=== PATIENT | female | born 1970 | race Caucasian/White ===

== ENCOUNTER 2016-05-26 11:41 | Emergency (ER) | payer OTHER ==
[~2016-05-26] VITALS: Ht 165.1 cm; Wt 107.5 kg
[~2016-05-26 11:41] MED LIST: CIPR500T4 PO; EXCETAB PO; KETO10 PO; METR500I3 PO; PERC10TA27 PO; POLY119S PO; RANI150T PO; SERT100 PO; TAB-TAB PO; TOPI25TA2 PO; TRAM50TA PO; VERA40TA PO; ZOFR4TAB3 SL; ZOLP10TA3 PO
[2016-05-26 12:04] VITALS: BP 135/91; PULSE 78; RESP 16; TEMP 99.5; O2SAT 98
[2016-05-26] MEDS ORDERED: PROB500T8 PO (12:24)
[2016-05-26] MEDS ORDERED: BUTA1TAB PO (12:24)
[2016-05-26] MEDS ORDERED: SUMA25TA2 PO (12:24)
[2016-05-26] MEDS ORDERED: CYMB60CA PO (12:24)
[2016-05-26] MEDS ORDERED: GABA300C5 PO (12:24)
[2016-05-26] MEDS ORDERED: VITA20003 PO (12:24)
[2016-05-26] MEDS ORDERED: VERA40TA PO (12:24)
[2016-05-26] MEDS ORDERED: LORA-392 PO (12:24)
[2016-05-26] MEDS ORDERED: CYCL1TAB29 PO (12:24)
[2016-05-26] MEDS ORDERED: LISI20TA PO (12:24)
[2016-05-26] MEDS ORDERED: AMBI10TA PO (12:24)
[2016-05-26] MEDS ORDERED: ZOFR8TAB4 SL (12:24)
[2016-05-26] MEDS ORDERED: LEFL1TAB3 PO (12:24)
[2016-05-26] MEDS ORDERED: MORPHINE SULFATE 4 MG/ML INJ IM ONE (12:30)
[2016-05-26] MEDS ORDERED: ONDANSETRON HCL 4 MG/2 ML VIAL IM ONE (12:30)
[2016-05-26] MEDS ORDERED: KETOROLAC TROMETHAMINE 60 MG/2 ML (IM) VIAL IM ONE (12:30)
--- NOTE | 2016-05-26 12:32 | PD ---
HPI Chief Complaint: Headache Time Seen by Provider: 12:15 Travel History International Travel<30 days: No Contact w/Intl Traveler<30days: No Traveled to known affect area: No History of Present Illness HPI This patient complains of headache. She has chronic daily headaches. She sees pain management and has had full neurologic evaluation. Comes in today complaining of headache. Similar to her usual but worse over the last 2 weeks then the usual headache. No thunderclap onset. No fever. No head injury. She takes no blood thinners. No alleviating factors PFSH Past Medical History Arthritis: Yes (rheumatoid) Autoimmune Disease: Yes (RA) Blood Disorders: No Anxiety: Yes Depression: Yes Heart Rhythm Problems: No Cancer: No Cardiac Catheterization: No Cardiovascular Problems: Yes (HTN) High Cholesterol: No Chest Pain: No Congestive Heart Failure: No Diabetes: No Diminished Hearing: No Endocrine: No Fibromyalgia: Yes Gastrointestinal Disorders: Yes (CHRONIC CONSTIPATION, ) GERD: No Gout: Yes Genitourinary: No Headaches: Yes Hepatitis: No Hiatal Hernia: No Hypertension: Yes (CONTROLLED BY MEDS) Immune Disorder: Yes Implanted Vascular Access Dvce: No Insomnia: Yes Medical other: Yes (pt has rheumatoid arthritis, traits of sickle cell ibs) Musculoskeletal: No Neurologic: Yes (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, SHORT TERM MEMORY ISSUES) Psychiatric: Yes Reproductive: No Respiratory: No Immunizations Current: No Migraines: Yes Myocardial Infarction: No Sickle Cell Disease: Yes (SICKLE CELL TRAIT) Thyroid Disease: No Ulcer: No Tetanus Vaccination: > 5 Years Influenza Vaccination: Yes ?: Not : 3 Para: 2 Miscarriage: 1 : 0 Tubal Ligation: Yes Past Surgical History Body Medical Devices: SICKLE CELL TRAIT Section: Yes (x1) Coronary Artery Bypass Graft: No Gynecologic Surgery: Yes ( tubaligation) Other Surgery: Yes Social History Alcohol Use: No Tobacco Use: No Substance Use: No Allergies-Medications (Allergen,Severity, Reaction): Coded Allergies: Codeine (Verified Allergy, Unknown, 05/26/16) THE PATEINT STATES THAT SHE CAN TOLERATE OTHER OPIATES WELL. Reported Meds & Prescriptions Reported Meds & Active Scripts Active Reported Sumatriptan (Sumatriptan Succinate) 25 Mg Tab 25 Mg PO DIRECTED PRN If a satisfactory response has not been obtained at 2 hours, a second dose may be administered Okzfpxbxju-Jkaajsdciueco-Jlzxhrul 50-325-40 Mg Tab 1-2 Tab PO Q6HR PRN Do not exceed 6 tablets/day. Ativan (Lorazepam) 0.5 Mg Tab 0.5 Mg PO Q8H PRN Flexeril (Cyclobenzaprine HCl) 10 Mg Tab 10 Mg PO BID Zofran Odt (Ondansetron Odt) 8 Mg Tab 8 Mg SL Q8HR Verapamil (Verapamil HCl) 40 Mg Tab 40 Mg PO BID Ambien (Zolpidem Tartrate) 10 Mg Tab 10 Mg PO HS PRN Lisinopril-Hctz 20-12.5 Mg Tab 1 Tab PO DAILY Cymbalta DR (Duloxetine HCl) 60 Mg Capdr 60 Mg PO DAILY Gabapentin 300 Mg Cap 300 Mg PO BID Vitamin D (Cholecalciferol) 2,000 Unit Tab 1 Cap PO DAILY Leflunomide 20 Mg Tab 20 Mg PO DAILY Probenecid 500 Mg Tab 500 Mg PO DAILY Review of Systems HENT: Positive: Headaches Cardiovascular: No: Chest Pain or Discomfort Respiratory: No: Cough Gastrointestinal: No: Nausea Physical Exam Narrative NEUROLOGICAL: Awake and alert. Pupils are equal round and reactive. Motor and sensory grossly within normal limits. Five out of 5 muscle strength in all muscle groups. Normal speech. NECK: Symmetrical appearance, midline trachea. No mass or crepitus. Thyroid without enlargement, tenderness, or mass. SKIN: Inspection shows no rash or ulcers. Palpation shows no induration or nodules. Data Data Last Documented VS Vital Signs Date Time Temp Pulse Resp B/P Pulse Ox O2 Delivery O2 Flow Rate FiO2 05/26/16 12:04 99.5 78 16 135/91 98 Orders Ondansetron Inj (Zofran Inj) (05/26/16 12:30) Ketorolac Inj (Toradol Inj) (05/26/16 12:30) Morphine Inj (Morphine Inj) (05/26/16 12:30) MDM Medical Decision Making Medical Screen Exam Complete: Yes Emergency Medical Condition: Yes Medical Record Reviewed: Yes Differential Diagnosis Differential diagnosis includes migraine, tension headache, cluster headache, meningitis. Narrative Course I have reviewed the patient's electronic medical record. In here for headache multiple times. Had a normal MRI of the brain in 2014 Patient is neurologically intact. No red flags to suggest emergent imaging is indicated. I gave her injection of morphine and Toradol and Zofran sHe should ask her physician whether further imaging is warranted and get follow -up there. Diagnosis Primary Impression: Headache Qualified Code: G44.221 - Chronic tension-type headache, intractable Additional Instructions: The patient was advised to follow up with their physician and return if they worsen. Med/Other Pt SpecificInfo: Other Disposition: 01 DISCHARGE HOME Condition: Stable Ozzy Alfonso MD May 26, 2016 12:32
[2016-05-26 13:18] VITALS: BP 138/67; PULSE 83; RESP 17; O2SAT 95
== END 2016-05-26 13:42 | disposition home or self-care (01) ==
LOC: PHED 11:41
DX: R51 Headache (principal); M06.9 Rheumatoid arthritis, unspecified; I10 Essential (primary) hypertension; F41.8 Other specified anxiety disorders; D57.3 Sickle-cell trait
CPT/HCPCS: 96372; 99283; J1885; J2270; J2405

== ENCOUNTER 2016-06-04 08:41 | Emergency (ER) | payer OTHER ==
[~2016-06-04] VITALS: Ht 165.1 cm; Wt 104.0 kg
[~2016-06-04 08:41] MED LIST changes: +AMBI10TA PO; +BUTA1TAB PO; -CIPR500T4 PO; +CYCL1TAB29 PO; +CYMB60CA PO; -EXCETAB PO; +GABA300C5 PO; -KETO10 PO; +LEFL1TAB3 PO; +LISI20TA PO; +LORA-392 PO; -METR500I3 PO; -PERC10TA27 PO; -POLY119S PO; +PROB500T8 PO; -RANI150T PO; -SERT100 PO; +SUMA25TA2 PO; -TAB-TAB PO; -TOPI25TA2 PO; -TRAM50TA PO; +VITA20003 PO; -ZOFR4TAB3 SL; +ZOFR8TAB4 SL; -ZOLP10TA3 PO
[2016-06-04 08:54] VITALS: BP 123/89; PULSE 92; RESP 17; TEMP 98.6; O2SAT 95
[2016-06-04 09:18] LABS: BLOOD, URINE NEG (NEG); GLUCOSE,URINE NEG (NEG); KETONE, URINE NEG (NEG); NITRITE,URINE NEG (NEG); PH, URINE 5.5 (5.0-8.5)
[2016-06-04 09:22] LABS: COMMENT (UR) CULT NOT INDICATED; CULTURE IF INDICATED CULT NOT INDICATED; METHOD OF COLLECTION CLEAN CATCH; SQUAMOUS EPITHELIAL CELL URINE 0-5 /hpf (0-5); URINE COLOR YELLOW (YELLW/STRAW)
[2016-06-04] MEDS ORDERED: SODIUM CHLOR 0.9% 1000 ML INJ 1,000 ML IV SCH (11:12)
[2016-06-04] MEDS ORDERED: ONDANSETRON HCL 4 MG/2 ML VIAL IVP ONE (11:15)
[2016-06-04] MEDS ORDERED: TYLETAB34 PO (11:15)
[2016-06-04] MEDS ORDERED: SODIUM CHLORIDE 0.9% FLUSH 5 ML FLUSH IVF PRN (11:15)
[2016-06-04] MEDS ORDERED: COLA100C3 PO (11:16)
[2016-06-04] MEDS ORDERED: MIRA33504 PO (11:16)
--- NOTE | 2016-06-04 11:17 | PD ---
HPI Chief Complaint: GI Complaint Time Seen by Provider: 11:11 Travel History International Travel<30 days: No Contact w/Intl Traveler<30days: No Traveled to known affect area: No History of Present Illness HPI 45-year-old female here for evaluation of abdominal pain, constipation, nausea, and vomiting. The patient reports that she has not had a bowel movement in the last 7-8 days. She states that she has been straining on the toilet and is having some rectal pain and believe she may have hemorrhoids because of it. History of section. No other abdominal surgeries. Last episode of vomiting was yesterday evening. Abdominal pain is lower, cramping, intermittent. No fevers or chills. History of diverticulitis. No urinary symptoms. No vaginal bleeding or discharge. PFSH Past Medical History Arthritis: Yes (rheumatoid) Autoimmune Disease: Yes (RA) Blood Disorders: No Anxiety: Yes Depression: Yes Heart Rhythm Problems: No Cancer: No Cardiac Catheterization: No Cardiovascular Problems: Yes (HTN) High Cholesterol: No Chest Pain: No Congestive Heart Failure: No Diabetes: No Diminished Hearing: No Endocrine: No Fibromyalgia: Yes Gastrointestinal Disorders: Yes (CHRONIC CONSTIPATION, ) GERD: No Gout: Yes Genitourinary: No Headaches: Yes Hepatitis: No Hiatal Hernia: No Heparin Induced Thrombocytopen: No Hypertension: Yes (CONTROLLED BY MEDS) Immune Disorder: Yes Implanted Vascular Access Dvce: No Insomnia: Yes Medical other: Yes (pt has rheumatoid arthritis, traits of sickle cell ibs) Musculoskeletal: No Neurologic: Yes (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, SHORT TERM MEMORY ISSUES) Psychiatric: Yes Reproductive: No Respiratory: No Immunizations Current: No Migraines: Yes Myocardial Infarction: No Sickle Cell Disease: Yes (SICKLE CELL TRAIT) Thyroid Disease: No Ulcer: No ?: Not LMP: 05/10/2016 : 3 Para: 2 Miscarriage: 1 : 0 Tubal Ligation: Yes Past Surgical History Body Medical Devices: SICKLE CELL TRAIT Section: Yes (x1) Coronary Artery Bypass Graft: No Gynecologic Surgery: Yes ( tubaligation) Other Surgery: Yes Family History Family Myocardial Infarction: No Social History Alcohol Use: No Tobacco Use: No Substance Use: No Allergies-Medications (Allergen,Severity, Reaction): Coded Allergies: Codeine (Verified Allergy, Unknown, PT DENIES, 06/04/16) THE PATEINT STATES THAT SHE CAN TOLERATE OTHER OPIATES WELL. Reported Meds & Prescriptions Reported Meds & Active Scripts Active Reported Miralax Powder (Polyethylene Glycol 3350 Powder) 17 Gm Powd 17 Gm PO DAILY Mix and dissolve one measuring cap-ful (17 grams) in water or juice. Colace (Docusate Sodium) 100 Mg Cap 100 Mg PO BID Tylenol-Codeine #3 (Acetaminophen-Codeine) 300-30 mg Tab 1-2 Tab PO Q6H PRN Akperzmhax-Ijanekgztqcxk-Pwdtsplj 50-325-40 Mg Tab 1-2 Tab PO Q6HR PRN Do not exceed 6 tablets/day. Ativan (Lorazepam) 0.5 Mg Tab 0.5 Mg PO Q8H PRN Flexeril (Cyclobenzaprine HCl) 10 Mg Tab 10 Mg PO BID Zofran Odt (Ondansetron Odt) 8 Mg Tab 8 Mg SL Q8HR Ambien (Zolpidem Tartrate) 10 Mg Tab 10 Mg PO HS PRN Lisinopril-Hctz 20-12.5 Mg Tab 1 Tab PO DAILY Gabapentin 300 Mg Cap 300 Mg PO BID Vitamin D (Cholecalciferol) 2,000 Unit Tab 1 Cap PO WEEKLY Leflunomide 20 Mg Tab 20 Mg PO DAILY Probenecid 500 Mg Tab 500 Mg PO DAILY Review of Systems Except as stated in HPI: all other systems reviewed are Neg Physical Exam Narrative GENERAL: Well-developed, well-nourished, overweight, comfortable, no acute distress. SKIN: Warm and dry. HEAD: Atraumatic. Normocephalic. EYES: Pupils equal and round. No scleral icterus. No injection or drainage. ENT: Mucous membranes pink and moist. NECK: Trachea midline. No JVD. CARDIOVASCULAR: Regular rate and rhythm. No murmur appreciated. RESPIRATORY: No accessory muscle use. Clear to auscultation. Breath sounds equal bilaterally. GASTROINTESTINAL: Abdomen soft, nondistended. Mild diffuse abdominal tenderness without peritoneal signs. Normal bowel sounds. RECTUM: Exam performed in the presence of a female nurse. No masses, no fissures, no hemorrhoids. No stool in rectal vault. MUSCULOSKELETAL: No obvious deformities. No clubbing. No cyanosis. No edema. NEUROLOGICAL: Awake and alert. No obvious cranial nerve deficits. Motor grossly within normal limits. Normal speech. PSYCHIATRIC: Appropriate mood and affect; insight and judgment normal. Data Data Last Documented VS Vital Signs Date Time Temp Pulse Resp B/P Pulse Ox O2 Delivery O2 Flow Rate FiO2 06/04/16 12:05 16 97 Room Air 06/04/16 12:04 88 133/86 06/04/16 08:54 98.6 Orders Urinalysis - C+S If Indicated (06/04/16 09:07) Ed Urine Pregnancytest Poc (06/04/16 09:07) Complete Blood Count With Diff (06/04/16 11:12) Comprehensive Metabolic Panel (06/04/16 11:12) Lipase (06/04/16 11:12) Prothrombin Time / Inr (Pt) (06/04/16 11:12) Act Partial Throm Time (Ptt) (06/04/16 11:12) Ct Abd/Pel W Iv Contrast(Rout) (06/04/16 11:12) Iv Access Insert/Monitor (06/04/16 11:12) Ecg Monitoring (06/04/16 11:12) Oximetry (06/04/16 11:12) Ondansetron Inj (Zofran Inj) (06/04/16 11:15) Sodium Chlor 0.9% 1000 Ml Inj (Ns 1000 M (06/04/16 11:12) Sodium Chloride 0.9% Flush (Ns Flush) (06/04/16 11:15) Iohexol 350 Inj (Omnipaque 350 Inj) (06/04/16 12:35) Dicyclomine Inj (Bentyl Inj) (06/04/16 13:30) Lactulose Liq (Lactulose Liq) (06/04/16 13:30) Labs Laboratory Tests Test 06/04/16 06/04/16 09:00 11:40 Urine Collection Type CLEAN CATCH Urine Color YELLOW Urine Turbidity CLEAR Urine pH 5.5 Urine Specific [place] 1.018 Urine Protein NEG mg/dL Urine Glucose (UA) NEG mg/dL Urine Ketones NEG mg/dL Urine Occult Blood NEG Urine Nitrite NEG Urine Bilirubin NEG Urine Leukocyte Esterase NEG Urine WBC 3-5 /hpf Urine Squamous Epithelial 0-5 /hpf Cells Microscopic Urinalysis Comment CULT NOT INDICATED Urine Collection Time 09:00 White Blood Count 9.2 TH/MM3 Red Blood Count 4.59 MIL/MM3 Hemoglobin 12.9 GM/DL Hematocrit 38.8 % Mean Corpuscular Volume 84.6 FL Mean Corpuscular Hemoglobin 28.1 PG Mean Corpuscular Hemoglobin 33.2 % Concent Red Cell Distribution Width 12.7 % Platelet Count 306 TH/MM3 Mean Platelet Volume 8.3 FL Neutrophils (%) (Auto) 73.2 % Lymphocytes (%) (Auto) 18.2 % Monocytes (%) (Auto) 6.8 % Eosinophils (%) (Auto) 1.1 % Basophils (%) (Auto) 0.7 % Neutrophils # (Auto) 6.7 TH/MM3 Lymphocytes # (Auto) 1.7 TH/MM3 Monocytes # (Auto) 0.6 TH/MM3 Eosinophils # (Auto) 0.1 TH/MM3 Basophils # (Auto) 0.1 TH/MM3 CBC Comment DIFF FINAL Differential Comment Prothrombin Time 10.9 SEC Prothromb Time International 1.0 RATIO Ratio Activated Partial 26.1 SEC Thromboplast Time Sodium Level 139 MEQ/L Potassium Level 3.5 MEQ/L Chloride Level 104 MEQ/L Carbon Dioxide Level 25.6 MEQ/L Anion Gap 9 MEQ/L Blood Urea Nitrogen 12 MG/DL Creatinine 0.86 MG/DL Estimat Glomerular Filtration 72 ML/MIN Rate Random Glucose 126 MG/DL Calcium Level 8.9 MG/DL Total Bilirubin 0.4 MG/DL Aspartate Amino Transf 14 U/L (AST/SGOT) Alanine Aminotransferase 18 U/L (ALT/SGPT) Alkaline Phosphatase 88 U/L Total Protein 8.0 GM/DL Albumin 3.9 GM/DL Lipase 57 U/L MDM Medical Decision Making Medical Screen Exam Complete: Yes Emergency Medical Condition: Yes Medical Record Reviewed: Yes Differential Diagnosis Constipation, bowel obstruction, diverticulitis, appendicitis, colitis, UTI Narrative Course Vital Signs are within normal limits. CBC is unremarkable. CMP is unremarkable. Lipase is 57. UA is not suggestive of UTI. Urine test is negative. CT abdomen pelvis: CONCLUSION: 1. No acute finding is identified within the abdomen or pelvis. There is a prominent amount of stool throughout the colon consistent with history of constipation. 2. Lobulated complex cystic lesion associated with the left ovary remains present but has decreased in size since the prior examination. It currently measures 4.8 x 3.9 cm compared to 6.3 x 4.1 cm previously. The patient was made aware of all findings. She is resting comfortably. Her abdominal exam shows no peritoneal signs. She is not vomiting. There are no clinical signs of obstruction. She is aware of the left ovarian cyst and states that it is being followed by her passenger service manager Dr. Hanson. She admits to taking a moderate amount of Tylenol 3 for her headaches. I believe that this is controlled reading to her constipation. I will give her a prescription for GoLYTELY to take at home. I will also give her prescription for lactulose should the GoLYTELY not work. She is stable for discharge home with outpatient follow-up with her primary care physician this week. She was informed on when to return to the emergency department. She verbalizes understanding and agreement with plan. 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 Follow-up with your primary care physician this week. Follow-up with your passenger service manager regarding your left ovarian cyst. Return to the emergency department for worsening symptoms or any other concerns as discussed. Scripts Lactulose Liq 10 Gm/15 Ml Soln30 Ml PO Q6H PRN (CONSTIPATION) 5 Days Ref 0 Prov:Cedric Mendez MD 06/04/16 Peg-Electrolytes (Golytely 236 gm)4,000 Ml Soln4,000 Ml PO ONCE #1 CONTAINER Ref 0 Prov:Cedric Mendez MD 06/04/16 Disposition: 01 DISCHARGE HOME Condition: Stable Cedric Mendez MD Jun 04, 2016 11:17
[2016-06-04 11:54] LABS: AUTOMATED NEUTROPHIL # 6.7 TH/MM3 (1.8-7.7); BASOPHIL # 0.1 TH/MM3 (0-0.2); BASOPHIL % 0.7 % (0.0-2.0); EOSINOPHIL # 0.1 TH/MM3 (0-0.4); EOSINOPHIL % 1.1 % (0.0-4.0); HEMATOCRIT 38.8 % (35.0-46.0); HEMO FLAGS DIFF FINAL; LYMPH % 18.2 % (9.0-44.0); LYMPHOCYTE # 1.7 TH/MM3 (1.0-4.8); MEAN CELL VOLUME 84.6 FL (80.0-100.0); MEAN CORPUSCULAR HEMOGLOBIN 28.1 PG (27.0-34.0); MEAN CORPUSCULAR HGB CONC 33.2 % (32.0-36.0); MONO % 6.8 % (0.0-8.0); NEUT % 73.2 % (16.0-70.0); PLATELET COUNT 306 TH/MM3 (150-450); RED BLOOD COUNT 4.59 MIL/MM3 (4.00-5.30); RED CELL DISTRIBUTION WIDTH 12.7 % (11.6-17.2); WHITE BLOOD COUNT 9.2 TH/MM3 (4.0-11.0)
[2016-06-04 12:00] LABS: CHLORIDE 104 MEQ/L (98-107); POTASSIUM 3.5 MEQ/L (3.5-5.1); SODIUM (NA) 139 MEQ/L (136-145)
[2016-06-04 12:04] VITALS: BP 133/86; PULSE 88; RESP 16; O2SAT 97
[2016-06-04 12:04] LABS: ANION GAP 9 MEQ/L (5-15); BICARBONATE 25.6 MEQ/L (21.0-32.0)
[2016-06-04 12:05] VITALS: RESP 16; O2SAT 97
[2016-06-04 12:05] LABS: APTT (PATIENT) 26.1 SEC (24.3-30.1); BLOOD UREA NITROGEN 12 MG/DL (7-18); PROTHROMBIN TIME - PATIENT 10.9 SEC (9.8-11.6)
[2016-06-04 12:07] LABS: ALT (GPT) 18 U/L (10-53); GLOMERULAR FILTRATION RATE 72 ML/MIN (>89)
[2016-06-04 12:08] LABS: AST (GOT) 14 U/L (15-37); TOTAL BILIRUBIN ADULT 0.4 MG/DL (0.2-1.0)
[2016-06-04 12:12] LABS: ALKALINE PHOSPHATASE 88 U/L (45-117)
[2016-06-04] MEDS ORDERED: IOHEXOL 350 MG/ML 10 ML VIAL (for RAD DIAG) IV ONE (12:35)
--- NOTE | 2016-06-04 13:15 | RADHPO ---
EXAM DATE/TIME: 06/04/2016 12:26 [facility] COMPARISON: US PELVIS,COMP,W DOPLR, TRANS VAG, July 02, 2015, 22:09. CT ABDOMEN & PELVIS W CONTRAST, 2015, 19:14. INDICATIONS : Lower abdominal pain. Nausea and vomiting. Constipation x 8 days. IV CONTRAST: 85 cc Omnipaque 350 (iohexol) IV ORAL CONTRAST: No oral contrast ingested. RADIATION DOSE: 22.04 CTDIvol (mGy) MEDICAL HISTORY : Hypertension. SURGICAL HISTORY : Tubal ligation. section. ENCOUNTER: Initial ACUITY: 1 week PAIN SCALE: 8/10 LOCATION: Bilateral lower quadrant TECHNIQUE: Volumetric scanning of the abdomen and pelvis was performed. Using automated exposure control and ad justment of the mA and/or kV according to patient size, radiation dose was kept as low as reasonably achievable to obtain optimal diagnostic quality images. FINDINGS: LOWER LUNGS: The visualized lower lungs are clear. LIVER: Homogeneous density without lesion. There is no dilation of the biliary tree. No calcified gallston es. SPLEEN: Normal size without lesion. PANCREAS: Within normal limits. KIDNEYS: Normal in size and shape. There is no mass, stone or hydronephrosis. ADRENAL GLANDS: Within normal limits. VASCULAR: There is no aortic aneurysm. BOWEL/MESENTERY: The stomach, small bowel, and colon demonstrate no acute abnormality. There is no free intraperitone al air or fluid. There is a prominent amount of stool throughout the colon. ABDOMINAL WALL: Within normal limits. RETROPERITONEUM: There is no lymphadenopathy. BLADDER: No wall thickening or mass. REPRODUCTIVE: Uterus is retroverted with tubal ligation clips visualized. There is a lobulated cystic lesion associ ated with the left ovary measuring approximately 4.8 x 3.9 cm. This compares to 6.3 x 4.1 cm on the p rior examination. INGUINAL: There is no lymphadenopathy or hernia. MUSCULOSKELETAL: No acute abnormality is visualized. CONCLUSION: 1. No acute finding is identified within the abdomen or pelvis. There is a prominent amount of stool throughout the colon consistent with history of constipation. 2. Lobulated complex cystic lesion associated with the left ovary remains present but has decreased i n size since the prior examination. It currently measures 4.8 x 3.9 cm compared to 6.3 x 4.1 cm previ ously. Aneesh Villalobos MD on June 04, 2016 at 13:08 Board Certified Radiologist. This report was verified electronically.
[2016-06-04] MEDS ORDERED: LACT10SO PO (13:26)
[2016-06-04] MEDS ORDERED: COLY4000S PO (13:26)
[2016-06-04] MEDS ORDERED: DICYCLOMINE HCL 20 MG/2 ML VIAL IM ONE (13:30)
[2016-06-04] MEDS ORDERED: LACTULOSE SYRUP 20 GM/30 ML CUP PO ONE (13:30)
[2016-06-04 13:54] VITALS: BP 135/78; PULSE 78; RESP 16; O2SAT 97
== END 2016-06-04 13:56 | disposition home or self-care (01) ==
LOC: PHED 08:41
DX: K59.00 Constipation, unspecified (principal); N83.202 Unspecified ovarian cyst, left side; F41.8 Other specified anxiety disorders; I10 Essential (primary) hypertension
CPT/HCPCS: 74177; 80053; 81001; 83690; 84703; 85025; 85610; 85730; 96361; 96372; 96374; 99284; J0500; J2405; J7030; Q9967

== ENCOUNTER → 2016-07-09 | Outpatient (CLI) | payer OTHER ==
[~2016-07-09] MED LIST changes: +CARB200T PO; +COLA100C3 PO; +COLY4000S PO; -CYMB60CA PO; +DULO1CAP3 PO; +LACT10SO PO; +MIRA33504 PO; -SUMA25TA2 PO; +TOFA1TAB PO; +TRAZ100T6 PO; +TYLETAB34 PO; +ULTR50TA5 PO; -VERA40TA PO; +VITA100T15 SL
[2016-07-09 09:35] LABS: AUTOMATED NEUTROPHIL # 3.8 TH/MM3 (1.8-7.7); BASOPHIL # 0.1 TH/MM3 (0-0.2); BASOPHIL % 1.2 % (0.0-2.0); EOSINOPHIL # 0.3 TH/MM3 (0-0.4); EOSINOPHIL % 4.5 % (0.0-4.0); HEMATOCRIT 37.3 % (35.0-46.0); HEMO FLAGS DIFF FINAL; LYMPH % 28.2 % (9.0-44.0); LYMPHOCYTE # 1.8 TH/MM3 (1.0-4.8); MEAN CELL VOLUME 84.9 FL (80.0-100.0); MEAN CORPUSCULAR HEMOGLOBIN 28.5 PG (27.0-34.0); MEAN CORPUSCULAR HGB CONC 33.6 % (32.0-36.0); MONO % 7.3 % (0.0-8.0); NEUT % 58.8 % (16.0-70.0); PLATELET COUNT 253 TH/MM3 (150-450); RED BLOOD COUNT 4.39 MIL/MM3 (4.00-5.30); RED CELL DISTRIBUTION WIDTH 13.2 % (11.6-17.2); WHITE BLOOD COUNT 6.5 TH/MM3 (4.0-11.0)
[2016-07-09 10:04] LABS: ALKALINE PHOSPHATASE 90 U/L (45-117); ALT (GPT) 19 U/L (10-53); ANION GAP 10 MEQ/L (5-15); AST (GOT) 18 U/L (15-37); BICARBONATE 26.3 MEQ/L (21.0-32.0); BLOOD UREA NITROGEN 10 MG/DL (7-18); CHLORIDE 102 MEQ/L (98-107); GLOMERULAR FILTRATION RATE 78 ML/MIN (>89); GLUCOSE,FASTING 100 MG/DL (74-99); POTASSIUM 3.7 MEQ/L (3.5-5.1); SODIUM (NA) 138 MEQ/L (136-145); TOTAL BILIRUBIN ADULT 0.3 MG/DL (0.2-1.0)
[2016-07-09 10:10] LABS: FREE T4 0.75 NG/DL (0.76-1.46); HDL CHOLESTEROL 41.6 MG/DL (40.0-60.0)
[2016-07-09 10:35] LABS: WESTERGREN SEDIMENTATION RATE 46 mm/hr (0-20)
[2016-07-09 10:44] LABS: RHEUMATOID FACTOR TRIGGER 99.3 IU/ML (0.0-14.9)
== END ==
LOC: CLAB 08:57
PROVIDERS: ATTEND Allergy & Immunology
DX: M05.741 Rheumatoid arthritis with rheumatoid factor of right hand without organ or systems involvement (principal); G43.909 Migraine, unspecified, not intractable, without status migrainosus; I10 Essential (primary) hypertension; G47.00 Insomnia, unspecified; Z79.899 Other long term (current) drug therapy
CPT/HCPCS: 36415; 80053; 80061; 84439; 84443; 85025; 85652; 86140; 86430

== ENCOUNTER 2016-11-01 07:54 | Emergency (ER) | payer OTHER ==
[~2016-11-01] VITALS: Ht 167.6 cm; Wt 100.0 kg
[~2016-11-01 07:54] MED LIST changes: -CARB200T PO; -DULO1CAP3 PO; -TOFA1TAB PO; -TRAZ100T6 PO; -ULTR50TA5 PO; -VITA100T15 SL
[2016-11-01 07:56] VITALS: BP 139/86; PULSE 87; RESP 16; TEMP 98.5; O2SAT 98
[2016-11-01] MEDS ORDERED: SODIUM CHLOR 0.9% 1000 ML INJ 1,000 ML IV SCH (08:20)
[2016-11-01 08:24] VITALS: RESP 18; O2SAT 98
[2016-11-01] MEDS ORDERED: SODIUM CHLORIDE 0.9% FLUSH 10 ML FLUSH IV FLUSH PRN (08:30)
[2016-11-01] MEDS ORDERED: HYDROmorphone HCL PF 1 MG/ML VIAL IVS ONE (08:30)
[2016-11-01] MEDS ORDERED: ONDANSETRON HCL 4 MG/2 ML VIAL IVP ONE (08:30)
--- NOTE | 2016-11-01 08:32 | PD ---
HPI Chief Complaint: GI Complaint Time Seen by Provider: 08:17 Travel History International Travel<30 days: No Contact w/Intl Traveler<30days: No Traveled to known affect area: No History of Present Illness HPI has a h/o ibs and had been constipated for days, despite using lactulose....drank some epsom salt and has since had abd cramps and bm's are PFSH Past Medical History Arthritis: Yes (rheumatoid) Autoimmune Disease: Yes (RA) Blood Disorders: No Anxiety: Yes Depression: Yes Heart Rhythm Problems: No Cancer: No Cardiac Catheterization: No Cardiovascular Problems: Yes (HTN) High Cholesterol: No Chest Pain: No Congestive Heart Failure: No Diabetes: No Diminished Hearing: No Endocrine: No Fibromyalgia: Yes Gastrointestinal Disorders: Yes (CHRONIC CONSTIPATION, ) GERD: No Gout: Yes Genitourinary: No Headaches: Yes Hepatitis: No Hiatal Hernia: No Heparin Induced Thrombocytopen: No Hypertension: Yes (CONTROLLED BY MEDS) Immune Disorder: Yes Implanted Vascular Access Dvce: No Insomnia: Yes Medical other: Yes (pt has rheumatoid arthritis, traits of sickle cell ibs) Musculoskeletal: No Neurologic: Yes (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, SHORT TERM MEMORY ISSUES) Psychiatric: Yes Reproductive: No Respiratory: No Immunizations Current: No Migraines: Yes Myocardial Infarction: No Sickle Cell Disease: Yes (SICKLE CELL TRAIT) Thyroid Disease: No Ulcer: No ?: Not : 3 Para: 2 Miscarriage: 1 : 0 Tubal Ligation: Yes Past Surgical History Body Medical Devices: SICKLE CELL TRAIT Section: Yes (x1) Coronary Artery Bypass Graft: No Gynecologic Surgery: Yes ( tubaligation) Other Surgery: Yes Family History Family Myocardial Infarction: No Social History Alcohol Use: No Tobacco Use: No Substance Use: No Allergies-Medications (Allergen,Severity, Reaction): Coded Allergies: No Known Allergies (Unverified , 11/01/16) Reported Meds & Prescriptions Reported Meds & Active Scripts Active Lactulose Liq (Lactulose) 10 Gm/15 Ml Soln 30 Ml PO Q6H PRN 5 Days Reported Carbamazepine 200 Mg Tab 200 Mg PO BID Vitamin B12 (Cyanocobalamin) 100 Mcg Tab 100 Mcg SL DAILY Xeljanz Xr (Tofacitinib ER) 11 Mg Tab 11 Mg PO DAILY Trazodone (Trazodone HCl) 100 Mg Tablet 100 Mg PO HS Duloxetine DR (Duloxetine HCl) 60 Mg Capdr 90 Mg PO DAILY Tylenol-Codeine #3 (Acetaminophen-Codeine) 300-30 mg Tab 1-2 Tab PO Q6H PRN Ulpvchqwtg-Ifykfntrlngyx-Ekecefzo 50-325-40 Mg Tab 1-2 Tab PO Q6HR PRN Do not exceed 6 tablets/day. Ativan (Lorazepam) 0.5 Mg Tab 0.5 Mg PO Q8H PRN Zofran Odt (Ondansetron Odt) 8 Mg Tab 8 Mg SL Q8HR Ambien (Zolpidem Tartrate) 10 Mg Tab 10 Mg PO HS PRN Lisinopril-Hctz 20-12.5 Mg Tab 1 Tab PO DAILY Gabapentin 300 Mg Cap 300 Mg PO TID Vitamin D (Cholecalciferol) 2,000 Unit Tab 1 Cap PO WEEKLY Leflunomide 20 Mg Tab 20 Mg PO DAILY Probenecid 500 Mg Tab 500 Mg PO DAILY Review of Systems Gastrointestinal: Positive: Diarrhea, Abdominal Pain Physical Exam Narrative GENERAL: SKIN: Warm and dry. HEAD: Atraumatic. Normocephalic. EYES: Pupils equal and round. No scleral icterus. No injection or drainage. ENT: No nasal bleeding or discharge. Mucous membranes pink and moist. NECK: Trachea midline. No JVD. CARDIOVASCULAR: Regular rate and rhythm. RESPIRATORY: No accessory muscle use. Clear to auscultation. Breath sounds equal bilaterally. GASTROINTESTINAL: Abdomen soft, mild diffuse tenderness to palpation but not to percussion, nondistended MUSCULOSKELETAL: Extremities without clubbing, cyanosis, or edema. No obvious deformities. NEUROLOGICAL: Awake and alert. No obvious cranial nerve deficits. Motor grossly within normal limits. Five out of 5 muscle strength in the arms and legs. Normal speech. PSYCHIATRIC: Appropriate mood and affect; insight and judgment normal. Data Data Last Documented VS Vital Signs Date Time Temp Pulse Resp B/P Pulse Ox O2 Delivery O2 Flow Rate FiO2 11/01/16 08:24 18 98 Room Air 11/01/16 07:56 98.5 87 139/86 Orders Complete Blood Count With Diff (11/01/16 08:20) Comprehensive Metabolic Panel (11/01/16 08:20) Lipase (11/01/16 08:20) Ct Abd/Pel W/O Iv Contrast (11/01/16 08:20) Iv Access Insert/Monitor (11/01/16 08:20) Ecg Monitoring (11/01/16 08:20) Oximetry (11/01/16 08:20) NPO (11/01/16 08:20) Ondansetron Inj (Zofran Inj) (11/01/16 08:30) Sodium Chlor 0.9% 1000 Ml Inj (Ns 1000 M (11/01/16 08:20) Sodium Chloride 0.9% Flush (Ns Flush) (11/01/16 08:30) Hydromorphone Pf Inj (Dilaudid Pf Inj) (11/01/16 08:30) Ed Urine Pregnancytest Poc (11/01/16 08:20) Prochlorperazine Inj (Compazine Inj) (11/01/16 09:30) Labs Laboratory Tests Test 11/01/16 08:56 White Blood Count 9.4 TH/MM3 Red Blood Count 4.40 MIL/MM3 Hemoglobin 12.4 GM/DL Hematocrit 36.8 % Mean Corpuscular Volume 83.5 FL Mean Corpuscular Hemoglobin 28.1 PG Mean Corpuscular Hemoglobin 33.7 % Concent Red Cell Distribution Width 14.0 % Platelet Count 277 TH/MM3 Mean Platelet Volume 8.7 FL Neutrophils (%) (Auto) 75.3 % Lymphocytes (%) (Auto) 16.5 % Monocytes (%) (Auto) 6.9 % Eosinophils (%) (Auto) 0.9 % Basophils (%) (Auto) 0.4 % Neutrophils # (Auto) 7.1 TH/MM3 Lymphocytes # (Auto) 1.5 TH/MM3 Monocytes # (Auto) 0.7 TH/MM3 Eosinophils # (Auto) 0.1 TH/MM3 Basophils # (Auto) 0.0 TH/MM3 CBC Comment DIFF FINAL Differential Comment Sodium Level 141 MEQ/L Potassium Level 3.5 MEQ/L Chloride Level 107 MEQ/L Carbon Dioxide Level 24.6 MEQ/L Anion Gap 9 MEQ/L Blood Urea Nitrogen 12 MG/DL Creatinine 0.87 MG/DL Estimat Glomerular Filtration 71 ML/MIN Rate Random Glucose 112 MG/DL Calcium Level 9.2 MG/DL Total Bilirubin 0.4 MG/DL Aspartate Amino Transf 18 U/L (AST/SGOT) Alanine Aminotransferase 22 U/L (ALT/SGPT) Alkaline Phosphatase 101 U/L Total Protein 8.3 GM/DL Albumin 4.1 GM/DL Lipase 88 U/L [facility] Medical Decision Making Medical Screen Exam Complete: Yes Emergency Medical Condition: Yes Medical Record Reviewed: Yes Differential Diagnosis medication reaction v colitis v divertic v sbo/perf Narrative Course PATIENT TOLERATED PO CHALLENGE...CT SIG FOR ADNEXAL CYST AND DIVERTICULOSIS BUT WITHOUT DIVERTICULITIS NOR ANY COMPLICATION (SUCH ABSCESS, MICROPERFORATION ETC). PT WILL BE D/C AND RECC TO F/U WITH GI SPECIALIST Diagnosis Primary Impression: MEDICATION REACTION Additional Impressions: DIVERTICULOSIS ADNEXAL CYST Patient Instructions: Clear Liquid Diet (ED), General Instructions, Narcotic given in the ED Scripts Tramadol (Ultram)50 Mg Tab50 Mg PO Q4H PRN (PAIN) #28 TAB Prov:Wilfrid Toledo MD 11/01/16 Disposition: 01 DISCHARGE HOME Condition: Stable Wilfrid Toledo MD Nov 01, 2016 08:32
[2016-11-01] MEDS ORDERED: CARB200T PO (09:16)
[2016-11-01] MEDS ORDERED: DULO1CAP3 PO (09:16)
[2016-11-01] MEDS ORDERED: TRAZ100T6 PO (09:16)
[2016-11-01] MEDS ORDERED: TOFA1TAB PO (09:16)
[2016-11-01] MEDS ORDERED: VITA100T15 SL (09:16)
[2016-11-01 09:18] LABS: AUTOMATED NEUTROPHIL # 7.1 TH/MM3 (1.8-7.7); BASOPHIL % 0.4 % (0.0-2.0); EOSINOPHIL # 0.1 TH/MM3 (0-0.4); EOSINOPHIL % 0.9 % (0.0-4.0); HEMATOCRIT 36.8 % (35.0-46.0); HEMO FLAGS DIFF FINAL; LYMPH % 16.5 % (9.0-44.0); LYMPHOCYTE # 1.5 TH/MM3 (1.0-4.8); MEAN CELL VOLUME 83.5 FL (80.0-100.0); MEAN CORPUSCULAR HEMOGLOBIN 28.1 PG (27.0-34.0); MEAN CORPUSCULAR HGB CONC 33.7 % (32.0-36.0); MONO % 6.9 % (0.0-8.0); NEUT % 75.3 % (16.0-70.0); PLATELET COUNT 277 TH/MM3 (150-450); WHITE BLOOD COUNT 9.4 TH/MM3 (4.0-11.0)
--- NOTE | 2016-11-01 09:24 | RADRPT ---
EXAM DATE/TIME: 11/01/2016 09:01 [facility] COMPARISON: US PELVIS,COMP,W DOPLR, TRANS VAG, July 02, 2015, 22:09. CT ABDOMEN & PELVIS W CONTRAST, June 04, 2016, 12:26. INDICATIONS : Abdomen pain. ORAL CONTRAST: No oral contrast ingested. RADIATION DOSE: 16.23 CTDIvol (mGy) MEDICAL HISTORY : Sickle cell disease. SURGICAL HISTORY : Tubal ligation. ENCOUNTER: Initial ACUITY: 1 day PAIN SCALE: 4/10 LOCATION: Bilateral abdomen. TECHNIQUE: Volumetric scanning of the abdomen and pelvis was performed. Using automated exposure control and ad justment of the mA and/or kV according to patient size, radiation dose was kept as low as reasonably achievable to obtain optimal diagnostic quality images. DICOM format image data is available electro nically for review and comparison. The lack of IV contrast limits the diagnosis for certain organ pat hology. FINDINGS: LOWER LUNGS: The visualized lower lungs are clear. LIVER: Homogeneous density without lesion. There is no dilation of the biliary tree. No calcified gallston es. SPLEEN: Normal size without lesion. PANCREAS: Within normal limits. KIDNEYS: Normal in size and shape. There is no mass, stone, or hydronephrosis. ADRENAL GLANDS: Within normal limits. VASCULAR: There is no aortic aneurysm. BOWEL/MESENTERY: The stomach, small bowel, and colon demonstrate no acute abnormality. There is no free intraperitone al air or fluid. Scattered diverticulosis of the descending and sigmoid colon without inflammatory ch anges. No significant change compared to the prior study. ABDOMINAL WALL: Within normal limits. RETROPERITONEUM: There is no lymphadenopathy. BLADDER: No wall thickening or mass. REPRODUCTIVE: Stable complex cystic mass in the left adnexa measuring approximately 5.3 x 2.1 cm. This is not signi ficantly changed compared to the prior CT abdomen and pelvic ultrasound from 2016 INGUINAL: There is no lymphadenopathy or hernia. MUSCULOSKELETAL: Within normal limits for patient age. CONCLUSION: 1. Diverticulosis of the descending and sigmoid colon without inflammatory changes. 2. Stable complex left adnexal cyst unchanged compared to prior studies. 3. No new or acute findings compared to the prior examination. Phoenix Thornton MD on November 01, 2016 at 9:16 Board Certified Radiologist. This report was verified electronically.
[2016-11-01] MEDS ORDERED: PROCHLORPERAZINE INJ 10 MG/2 ML VIAL IV PUSH ONE (09:30)
[2016-11-01 09:36] LABS: ANION GAP 9 MEQ/L (5-15); AST (GOT) 18 U/L (15-37); BICARBONATE 24.6 MEQ/L (21.0-32.0); BLOOD UREA NITROGEN 12 MG/DL (7-18); CHLORIDE 107 MEQ/L (98-107); GLOMERULAR FILTRATION RATE 71 ML/MIN (>89); POTASSIUM 3.5 MEQ/L (3.5-5.1); SODIUM (NA) 141 MEQ/L (136-145)
[2016-11-01 09:40] LABS: ALKALINE PHOSPHATASE 101 U/L (45-117); ALT (GPT) 22 U/L (10-53); TOTAL BILIRUBIN ADULT 0.4 MG/DL (0.2-1.0)
[2016-11-01] MEDS ORDERED: ULTR50TA5 PO (10:35)
== END 2016-11-01 11:14 | disposition home or self-care (01) ==
LOC: NEPC 07:54
DX: R10.84 Generalized abdominal pain (principal); T50.905A Adverse effect of unspecified drugs, medicaments and biological substances, initial encounter; K57.90 Diverticulosis of intestine, part unspecified, without perforation or abscess without bleeding; R93.8 Abnormal findings on diagnostic imaging of other specified body structures; I10 Essential (primary) hypertension; D57.3 Sickle-cell trait; Z87.39 Personal history of other diseases of the musculoskeletal system and connective tissue; Z86.2 Personal history of diseases of the blood and blood-forming organs and certain disorders involving the immune mechanism; Z86.59 Personal history of other mental and behavioral disorders; Z86.79 Personal history of other diseases of the circulatory system; Z87.19 Personal history of other diseases of the digestive system; Z86.69 Personal history of other diseases of the nervous system and sense organs
CPT/HCPCS: 74176; 80053; 83690; 84703; 85025; 96361; 96374; 96375; 99285; J0780; J1170; J2405; J7030

== ENCOUNTER → 2016-11-24 | Outpatient (CLI) | payer OTHER ==
[~2016-11-24] MED LIST changes: +CARB200T PO; -COLA100C3 PO; -COLY4000S PO; -CYCL1TAB29 PO; +DULO1CAP3 PO; -MIRA33504 PO; +TOFA1TAB PO; +TRAZ100T6 PO; +ULTR50TA5 PO; +VITA100T15 SL
[2016-11-24 07:48] LABS: BASOPHIL % 0.6 % (0.0-2.0); EOSINOPHIL # 0.3 TH/MM3 (0-0.4); EOSINOPHIL % 3.7 % (0.0-4.0); HEMATOCRIT 37.5 % (35.0-46.0); HEMO FLAGS DIFF FINAL; LYMPH % 20.2 % (9.0-44.0); LYMPHOCYTE # 1.5 TH/MM3 (1.0-4.8); MEAN CELL VOLUME 84.3 FL (80.0-100.0); MEAN CORPUSCULAR HEMOGLOBIN 27.3 PG (27.0-34.0); MEAN CORPUSCULAR HGB CONC 32.3 % (32.0-36.0); MONO % 8.1 % (0.0-8.0); NEUT % 67.4 % (16.0-70.0); PLATELET COUNT 283 TH/MM3 (150-450); RED BLOOD COUNT 4.45 MIL/MM3 (4.00-5.30); RED CELL DISTRIBUTION WIDTH 14.1 % (11.6-17.2); WHITE BLOOD COUNT 7.4 TH/MM3 (4.0-11.0)
[2016-11-24 08:11] LABS: ANION GAP 6 MEQ/L (5-15); AST (GOT) 12 U/L (15-37); BICARBONATE 29.5 MEQ/L (21.0-32.0); BLOOD UREA NITROGEN 17 MG/DL (7-18); CHLORIDE 104 MEQ/L (98-107); GLOMERULAR FILTRATION RATE 73 ML/MIN (>89); GLUCOSE,FASTING 106 MG/DL (74-99); POTASSIUM 3.6 MEQ/L (3.5-5.1); SODIUM (NA) 139 MEQ/L (136-145)
[2016-11-24 08:12] LABS: ALT (GPT) 19 U/L (10-53)
[2016-11-24 08:14] LABS: ALKALINE PHOSPHATASE 94 U/L (45-117); TOTAL BILIRUBIN ADULT 0.3 MG/DL (0.2-1.0)
[2016-11-24 08:22] LABS: WESTERGREN SEDIMENTATION RATE 29 mm/hr (0-20)
== END ==
LOC: CLAB 07:04
PROVIDERS: ATTEND Allergy & Immunology
DX: M05.741 Rheumatoid arthritis with rheumatoid factor of right hand without organ or systems involvement (principal); M65.9 Synovitis and tenosynovitis, unspecified; R79.82 Elevated C-reactive protein (CRP); R76.8 Other specified abnormal immunological findings in serum
CPT/HCPCS: 36415; 80053; 85025; 85652; 86038; 86140; 86200; 86430

== ENCOUNTER → 2017-01-25 | Outpatient (CLI) | payer OTHER ==
[2017-01-25 09:03] LABS: AUTOMATED NEUTROPHIL # 4.1 TH/MM3 (1.8-7.7); BASOPHIL % 0.6 % (0.0-2.0); EOSINOPHIL # 0.4 TH/MM3 (0-0.4); HEMATOCRIT 35.9 % (35.0-46.0); HEMO FLAGS DIFF FINAL; LYMPH % 28.1 % (9.0-44.0); MEAN CELL VOLUME 85.3 FL (80.0-100.0); MEAN CORPUSCULAR HEMOGLOBIN 28.5 PG (27.0-34.0); MEAN CORPUSCULAR HGB CONC 33.4 % (32.0-36.0); MONO % 8.3 % (0.0-8.0); PLATELET COUNT 251 TH/MM3 (150-450); RED CELL DISTRIBUTION WIDTH 13.9 % (11.6-17.2); WHITE BLOOD COUNT 7.2 TH/MM3 (4.0-11.0)
[2017-01-25 09:30] LABS: WESTERGREN SEDIMENTATION RATE 33 mm/hr (0-20)
[2017-01-25 09:55] LABS: ANION GAP 5 MEQ/L (5-15); AST (GOT) 16 U/L (15-37); BICARBONATE 27.6 MEQ/L (21.0-32.0); BLOOD UREA NITROGEN 11 MG/DL (7-18); CHLORIDE 104 MEQ/L (98-107); GLOMERULAR FILTRATION RATE 89 ML/MIN (>89); GLUCOSE,FASTING 97 MG/DL (74-99); POTASSIUM 3.9 MEQ/L (3.5-5.1); SODIUM (NA) 137 MEQ/L (136-145)
[2017-01-25 10:00] LABS: ALKALINE PHOSPHATASE 82 U/L (45-117); ALT (GPT) 19 U/L (10-53); TOTAL BILIRUBIN ADULT 0.3 MG/DL (0.2-1.0)
== END ==
LOC: CLAB 08:32
PROVIDERS: ATTEND Allergy & Immunology
DX: M65.9 Synovitis and tenosynovitis, unspecified (principal); M05.741 Rheumatoid arthritis with rheumatoid factor of right hand without organ or systems involvement; Z79.899 Other long term (current) drug therapy
CPT/HCPCS: 36415; 80053; 85025; 85652; 86140

== ENCOUNTER → 2017-03-31 | Outpatient (CLI) | payer OTHER ==
[~2017-03-31] MED LIST changes: +CYAN100 SL; +TRAM50 PO; +TRAZ100T10 PO; -TRAZ100T6 PO; -ULTR50TA5 PO; -VITA100T15 SL
[2017-03-31 09:06] LABS: AUTOMATED NEUTROPHIL # 5.3 TH/MM3 (1.8-7.7); BASOPHIL # 0.1 TH/MM3 (0-0.2); BASOPHIL % 0.7 % (0.0-2.0); EOSINOPHIL # 0.1 TH/MM3 (0-0.4); EOSINOPHIL % 1.3 % (0.0-4.0); HEMATOCRIT 36.2 % (35.0-46.0); HEMO FLAGS DIFF FINAL; LYMPHOCYTE # 1.8 TH/MM3 (1.0-4.8); MEAN CELL VOLUME 86.1 FL (80.0-100.0); MEAN CORPUSCULAR HEMOGLOBIN 29.6 PG (27.0-34.0); MEAN CORPUSCULAR HGB CONC 34.3 % (32.0-36.0); MONO % 8.2 % (0.0-8.0); NEUT % 66.8 % (16.0-70.0); PLATELET COUNT 278 TH/MM3 (150-450); RED CELL DISTRIBUTION WIDTH 13.1 % (11.6-17.2); WHITE BLOOD COUNT 7.9 TH/MM3 (4.0-11.0)
[2017-03-31 09:31] LABS: WESTERGREN SEDIMENTATION RATE 32 mm/hr (0-20)
[2017-03-31 10:00] LABS: ANION GAP 6 MEQ/L (5-15); AST (GOT) 14 U/L (15-37); BICARBONATE 27.7 MEQ/L (21.0-32.0); BLOOD UREA NITROGEN 16 MG/DL (7-18); CHLORIDE 102 MEQ/L (98-107); GLOMERULAR FILTRATION RATE 80 ML/MIN (>89); GLUCOSE,FASTING 109 MG/DL (74-99); POTASSIUM 3.6 MEQ/L (3.5-5.1); SODIUM (NA) 136 MEQ/L (136-145)
[2017-03-31 10:01] LABS: ALT (GPT) 19 U/L (10-53)
[2017-03-31 10:07] LABS: ALKALINE PHOSPHATASE 101 U/L (45-117); TOTAL BILIRUBIN ADULT 0.3 MG/DL (0.2-1.0); URIC ACID 4.6 MG/DL (2.6-6.0)
== END ==
LOC: CLAB 08:39
DX: M05.741 Rheumatoid arthritis with rheumatoid factor of right hand without organ or systems involvement (principal)
CPT/HCPCS: 36415; 80053; 84550; 85025; 85652; 86140; 86200; 86430

== ENCOUNTER → 2017-06-30 | Outpatient (CLI) | payer OTHER ==
[~2017-06-30] MED LIST changes: +LYRI100C PO; +ZOFR4TAB3 SL
[2017-06-30 08:06] LABS: AUTOMATED NEUTROPHIL # 3.9 TH/MM3 (1.8-7.7); BASOPHIL % 0.5 % (0.0-2.0); EOSINOPHIL # 0.2 TH/MM3 (0-0.4); EOSINOPHIL % 3.9 % (0.0-4.0); HEMATOCRIT 35.7 % (35.0-46.0); HEMOGLOBIN 12.2 GM/DL (11.6-15.3); LYMPH % 25.2 % (9.0-44.0); LYMPHOCYTE # 1.6 TH/MM3 (1.0-4.8); MEAN CELL VOLUME 85.8 FL (80.0-100.0); MEAN CORPUSCULAR HEMOGLOBIN 29.4 PG (27.0-34.0); MEAN CORPUSCULAR HGB CONC 34.3 % (32.0-36.0); MEAN PLATELET VOLUME 8.1 FL (7.0-11.0); MONO % 8.7 % (0.0-8.0); MONOCYTE # 0.5 TH/MM3 (0-0.9); NEUT % 61.7 % (16.0-70.0); PLATELET COUNT 272 TH/MM3 (150-450); RED BLOOD COUNT 4.17 MIL/MM3 (4.00-5.30); RED CELL DISTRIBUTION WIDTH 13.3 % (11.6-17.2); WHITE BLOOD COUNT 6.3 TH/MM3 (4.0-11.0)
[2017-06-30 08:17] LABS: ALBUMIN 3.7 GM/DL (3.4-5.0); ALT (GPT) 15 U/L (10-53); AST (GOT) 15 U/L (15-37); BICARBONATE 28.7 MEQ/L (21.0-32.0); BLOOD UREA NITROGEN 13 MG/DL (7-18); CALCIUM 8.5 MG/DL (8.5-10.1); CHLORIDE 106 MEQ/L (98-107); CREATININE 0.75 MG/DL (0.50-1.00); GLOMERULAR FILTRATION RATE 84 ML/MIN (>89); GLUCOSE,FASTING 98 MG/DL (74-99); SODIUM (NA) 141 MEQ/L (136-145)
[2017-06-30 08:19] LABS: RHEUMATOID FACTOR SCREEN POSITIVE (NEGATIVE); THYROXINE (T4) 8.7 MCG/DL (4.8-13.9)
[2017-06-30 08:20] LABS: ALKALINE PHOSPHATASE 101 U/L (45-117); C-REACTIVE PROTEIN 2.88 MG/DL (0.00-0.30); TOTAL BILIRUBIN ADULT 0.2 MG/DL (0.2-1.0); TOTAL PROTEIN 7.4 GM/DL (6.4-8.2)
[2017-06-30 08:27] LABS: CHOLESTEROL/ HDL RATIO 3.41 RATIO; HDL CHOLESTEROL 42.7 MG/DL (40.0-60.0)
[2017-06-30 09:13] LABS: WESTERGREN SEDIMENTATION RATE 28 mm/hr (0-20)
== END ==
LOC: CLAB 07:33
DX: M05.741 Rheumatoid arthritis with rheumatoid factor of right hand without organ or systems involvement (principal); M05.742 Rheumatoid arthritis with rheumatoid factor of left hand without organ or systems involvement; F32.4 Major depressive disorder, single episode, in partial remission; I10 Essential (primary) hypertension
CPT/HCPCS: 36415; 80053; 80061; 84436; 84443; 84550; 85025; 85652; 86140; 86430

== ENCOUNTER 2017-07-02 02:54 | Emergency (ER) | payer OTHER ==
[~2017-07-02] VITALS: Ht 165.1 cm; Wt 105.0 kg
[~2017-07-02 02:54] MED LIST changes: -LYRI100C PO; -ZOFR4TAB3 SL
[2017-07-02 03:14] VITALS: BP 126/70; PULSE 104; RESP 16; TEMP 97.5; O2SAT 99
[2017-07-02] MEDS ORDERED: LYRI100C PO (03:22)
[2017-07-02] MEDS ORDERED: SODIUM CHLOR 0.9% 1000 ML INJ 1,000 ML IV ONE ×2 (03:45→07:00)
[2017-07-02] MEDS ORDERED: KETOROLAC TROMETHAMINE 30 MG/ML (IVP) VIAL IV PUSH ONE (03:45)
[2017-07-02] MEDS ORDERED: FAMOTIDINE 20 MG/2 ML VIAL IV PUSH SCH (03:45)
[2017-07-02 03:54] LABS: AUTOMATED NEUTROPHIL # 21.6 TH/MM3 (1.8-7.7); BASOPHIL # 0.1 TH/MM3 (0-0.2); BASOPHIL % 0.3 % (0.0-2.0); EOSINOPHIL # 0.1 TH/MM3 (0-0.4); EOSINOPHIL % 0.3 % (0.0-4.0); HEMOGLOBIN 14.4 GM/DL (11.6-15.3); LYMPH % 2.1 % (9.0-44.0); LYMPHOCYTE # 0.5 TH/MM3 (1.0-4.8); MEAN CELL VOLUME 85.3 FL (80.0-100.0); MEAN CORPUSCULAR HEMOGLOBIN 29.2 PG (27.0-34.0); MEAN CORPUSCULAR HGB CONC 34.2 % (32.0-36.0); MEAN PLATELET VOLUME 8.7 FL (7.0-11.0); MONO % 3.8 % (0.0-8.0); MONOCYTE # 0.9 TH/MM3 (0-0.9); NEUT % 93.5 % (16.0-70.0); PLATELET COUNT 300 TH/MM3 (150-450); RED BLOOD COUNT 4.92 MIL/MM3 (4.00-5.30); RED CELL DISTRIBUTION WIDTH 13.6 % (11.6-17.2); WHITE BLOOD COUNT 23.1 TH/MM3 (4.0-11.0)
[2017-07-02 04:44] LABS: ALBUMIN 4.4 GM/DL (3.4-5.0); ALKALINE PHOSPHATASE 120 U/L (45-117); ALT (GPT) 20 U/L (10-53); AST (GOT) 19 U/L (15-37); BICARBONATE 23.3 MEQ/L (21.0-32.0); BLOOD UREA NITROGEN 15 MG/DL (7-18); CHLORIDE 104 MEQ/L (98-107); CREATININE 0.98 MG/DL (0.50-1.00); GLOMERULAR FILTRATION RATE 62 ML/MIN (>89); GLUCOSE,RANDOM 187 MG/DL (74-106); SODIUM (NA) 138 MEQ/L (136-145); TOTAL BILIRUBIN ADULT 0.4 MG/DL (0.2-1.0); TOTAL PROTEIN 8.9 GM/DL (6.4-8.2)
[2017-07-02] MEDS ORDERED: MORPHINE SULFATE 2 MG/ML INJ IV PUSH ONE (05:15)
[2017-07-02] MEDS ORDERED: METOCLOPRAMIDE INJ 10 MG in SODIUM CHLORIDE 0.9% INJ 50 ML IV ONE (05:15)
--- NOTE | 2017-07-02 05:15 | RADRPT ---
EXAM DATE/TIME: 07/02/2017 04:52 [facility] COMPARISON: No previous studies available for comparison. INDICATIONS : Nausea and vomiting x 1 day. MEDICAL HISTORY : Hypertension. SURGICAL HISTORY : section. Tubal ligation. ENCOUNTER: Initial ACUITY: 1 day PAIN SCORE: 9/10 LOCATION: Bilateral Abdomen FINDINGS: Supine and upright views of the abdomen were performed. The abdominal bowel gas pattern is normal. No air fluid levels are seen. No abnormal masses, calcifications, or organomegaly is seen. The visu alized lower lungs are clear. No evidence of free intraperitoneal gas. The osseous structures are u nremarkable. CONCLUSION: Benign-appearing abdomen. Aneesh Padgett MD on July 02, 2017 at 5:13 Board Certified Radiologist. This report was verified electronically.
[2017-07-02 05:35] LABS: BACTERIA, URINE RARE /hpf; BILIRUBIN, URINE NEG (NEG); BLOOD, URINE NEG (NEG); GLUCOSE,URINE NEG (NEG); HYALINE CAST, URINE 11 /lpf (RARE); KETONE, URINE TRACE mg/dL (NEG); MUCUS URINE MANY /lpf (OCC); NITRITE,URINE NEG (NEG); SQUAMOUS EPITHELIAL CELL URINE 8 /hpf (0-5); URINE COLOR YELLOW (YELLW/STRAW); URINE LEUKOCYTE ESTERASE NEG (NEG)
--- NOTE | 2017-07-02 05:42 | PD ---
HPI Chief Complaint: GI Complaint Time Seen by Provider: 03:14 Travel History International Travel<30 days: No Contact w/Intl Traveler<30days: No Traveled to known affect area: No History of Present Illness HPI Patient is a 46-year-old female who 4 day and a half has had diarrhea vomiting she ate pizza [place] pizza last night had half a slice of much [place] and sausage did not feel good and then vomited multiple times diarrhea excessive called 911 had vomiting and diarrhea in the ambulance severe lower cramps diffuse lower abdomen with epigastric leg pain as well Zofran 2 in the ambulance did not alleviate her nausea she continues to vomit in the ER she is having severe pain in her white count comes back at 23. She has no risks for C. difficile she does work in healthcare she has not been on antibiotics recently she has not traveled she has no risk for Giardia she has not been ground water or fever feces contaminated water risk no children daycare risk of Giardia no outside of the [facility] travel no risk for infectious diarrhea most likely foodborne pathogen causing her PFSH Past Medical History Arthritis: Yes (rheumatoid) Autoimmune Disease: Yes (RA) Blood Disorders: No Anxiety: Yes Depression: Yes Heart Rhythm Problems: No Cancer: No Cardiac Catheterization: No Cardiovascular Problems: Yes (HTN) High Cholesterol: No Chest Pain: No Congestive Heart Failure: No Diabetes: No Diminished Hearing: No Endocrine: No Fibromyalgia: Yes Gastrointestinal Disorders: Yes (CHRONIC CONSTIPATION, ) GERD: No Gout: Yes Genitourinary: No Headaches: Yes Hepatitis: No Hiatal Hernia: No Heparin Induced Thrombocytopen: No Hypertension: Yes (CONTROLLED BY MEDS) Immune Disorder: Yes Implanted Vascular Access Dvce: No Insomnia: Yes Medical other: Yes (pt has rheumatoid arthritis, traits of sickle cell ibs) Musculoskeletal: No Neurologic: Yes (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, SHORT TERM MEMORY ISSUES) Psychiatric: Yes Reproductive: No Respiratory: No Immunizations Current: No Migraines: Yes Myocardial Infarction: No Sickle Cell Disease: Yes (SICKLE CELL TRAIT) Thyroid Disease: No Ulcer: No Influenza Vaccination: No ?: Not LMP: May 2017 : 3 Para: 2 Miscarriage: 1 : 0 Tubal Ligation: Yes Past Surgical History Body Medical Devices: SICKLE CELL TRAIT Section: Yes (x1) Coronary Artery Bypass Graft: No Gynecologic Surgery: Yes ( tubaligation) Other Surgery: Yes Social History Alcohol Use: No Tobacco Use: No Substance Use: No Allergies-Medications (Allergen,Severity, Reaction): Coded Allergies: No Known Allergies (Unverified Adverse Reaction, Unknown, 07/02/17) Reported Meds & Prescriptions Reported Meds & Active Scripts Active Zofran Odt (Ondansetron Odt) 4 Mg Tab 4 Mg SL Q6HR PRN Reported Lyrica (Pregabalin) 100 Mg Cap 100 Mg PO HS Carbamazepine 200 Mg Tab 200 Mg PO BID Vitamin B12 (Cyanocobalamin) 100 Mcg Tab 100 Mcg SL DAILY Xeljanz Xr (Tofacitinib ER) 11 Mg Tab 11 Mg PO DAILY Trazodone (Trazodone HCl) 100 Mg Tablet 100 Mg PO HS Duloxetine DR (Duloxetine HCl) 60 Mg Capdr 90 Mg PO DAILY Tylenol-Codeine #3 (Acetaminophen-Codeine) 300-30 mg Tab 1-2 Tab PO Q6H PRN Wbvjwhhdej-Pwdpjamsofnam-Obhokufj 50-325-40 Mg Tab 1-2 Tab PO Q6HR PRN Do not exceed 6 tablets/day. Ativan (Lorazepam) 0.5 Mg Tab 0.5 Mg PO Q8H PRN Zofran Odt (Ondansetron Odt) 8 Mg Tab 8 Mg SL Q8HR Ambien (Zolpidem Tartrate) 10 Mg Tab 10 Mg PO HS PRN Lisinopril-Hctz 20-12.5 Mg Tab 1 Tab PO DAILY Vitamin D (Cholecalciferol) 2,000 Unit Tab 1 Cap PO WEEKLY Leflunomide 20 Mg Tab 20 Mg PO DAILY Probenecid 500 Mg Tab 500 Mg PO DAILY Review of Systems Except as stated in HPI: all other systems reviewed are Neg Gastrointestinal: Positive: Nausea, Vomiting, Diarrhea, Abdominal Pain Physical Exam Narrative GENERAL: diffuse pain holding abdo and crying saying "help me help me " SKIN: Warm and dry. HEAD: Atraumatic. Normocephalic. EYES: Pupils equal and round. No scleral icterus. No injection or drainage. ENT: No nasal bleeding or discharge. Mucous membranes pink and moist. NECK: Trachea midline. No JVD. CARDIOVASCULAR: Regular rate and rhythm. RESPIRATORY: No accessory muscle use. Clear to auscultation. Breath sounds equal bilaterally. GASTROINTESTINAL: Abdomen Diffuse lower abdomen pain and mild epigastric pain Hepatic and splenic margins not palpable. MUSCULOSKELETAL: Extremities without clubbing, cyanosis, or edema. No obvious deformities. NEUROLOGICAL: Awake and alert. No obvious cranial nerve deficits. Motor grossly within normal limits. Five out of 5 muscle strength in the arms and legs. Normal speech. PSYCHIATRIC: severe pain reaction crying screaming help me Data Data Last Documented VS Vital Signs Date Time Temp Pulse Resp B/P (MAP) Pulse Ox O2 Delivery O2 Flow Rate FiO2 07/02/17 08:17 103 15 97 Room Air 07/02/17 03:14 97.5 126/70 (88) Orders Orders Complete Blood Count With Diff (07/02/17 03:38) Comprehensive Metabolic Panel (07/02/17 03:38) Lipase (07/02/17 03:38) Urinalysis - C+S If Indicated (07/02/17 03:38) Famotidine Inj (Pepcid Inj) (07/02/17 03:45) Ketorolac Inj (Toradol Inj) (07/02/17 03:45) Sodium Chlor 0.9% 1000 Ml Inj (Ns 1000 M (07/02/17 03:45) Ed Urine Pregnancytest Poc (07/02/17 04:38) Abdomen, Flat & Upright (07/02/17 ) Metoclopramide Inj (Reglan Inj) (07/02/17 05:15) Morphine Inj (Morphine Inj) (07/02/17 05:15) Ct Abd/Pel W Iv Contrast(Rout) (07/02/17 ) Sodium Chlor 0.9% 1000 Ml Inj (Ns 1000 M (07/02/17 07:00) Oral Contrast - Adult (07/02/17 07:51) Iohexol 350 Inj (Omnipaque 350 Inj) (07/02/17 08:41) Ed Discharge Order (07/02/17 09:31) Labs Laboratory Tests Test 07/02/17 03:35 07/02/17 05:00 White Blood Count 23.1 TH/MM3 Red Blood Count 4.92 MIL/MM3 Hemoglobin 14.4 GM/DL Hematocrit 42.0 % Mean Corpuscular Volume 85.3 FL Mean Corpuscular Hemoglobin 29.2 PG Mean Corpuscular Hemoglobin Concent 34.2 % Red Cell Distribution Width 13.6 % Platelet Count 300 TH/MM3 Mean Platelet Volume 8.7 FL Neutrophils (%) (Auto) 93.5 % Lymphocytes (%) (Auto) 2.1 % Monocytes (%) (Auto) 3.8 % Eosinophils (%) (Auto) 0.3 % Basophils (%) (Auto) 0.3 % Neutrophils # (Auto) 21.6 TH/MM3 Lymphocytes # (Auto) 0.5 TH/MM3 Monocytes # (Auto) 0.9 TH/MM3 Eosinophils # (Auto) 0.1 TH/MM3 Basophils # (Auto) 0.1 TH/MM3 CBC Comment DIFF FINAL Differential Comment Blood Urea Nitrogen 15 MG/DL Creatinine 0.98 MG/DL Random Glucose 187 MG/DL Total Protein 8.9 GM/DL Albumin 4.4 GM/DL Calcium Level 10.0 MG/DL Alkaline Phosphatase 120 U/L Aspartate Amino Transf (AST/SGOT) 19 U/L Alanine Aminotransferase (ALT/SGPT) 20 U/L Total Bilirubin 0.4 MG/DL Sodium Level 138 MEQ/L Potassium Level 3.9 MEQ/L Chloride Level 104 MEQ/L Carbon Dioxide Level 23.3 MEQ/L Anion Gap 11 MEQ/L Estimat Glomerular Filtration Rate 62 ML/MIN Lipase 52 U/L Urine Color YELLOW Urine Turbidity HAZY Urine pH 5.0 Urine Specific [place] 1.023 Urine Protein 30 mg/dL Urine Glucose (UA) NEG mg/dL Urine Ketones TRACE mg/dL Urine Occult Blood NEG Urine Nitrite NEG Urine Bilirubin NEG Urine Urobilinogen LESS THAN 2.0 MG/DL Urine Leukocyte Esterase NEG Urine RBC 3 /hpf Urine WBC 3 /hpf Urine Squamous Epithelial Cells 8 /hpf Urine Bacteria RARE /hpf Urine Hyaline Casts 11 /lpf Urine Granular Casts 42 /lpf Urine Mucus MANY /lpf Microscopic Urinalysis Comment CULT NOT INDICATED MDM Medical Decision Making Medical Screen Exam Complete: Yes Emergency Medical Condition: Yes Differential Diagnosis pt has severe lower quadrant pain with cramps diarrhea and vomit her pain reaction is out of proportion to clinical reaction , ischemic colitis ? vs diverticultis vs gastritis, food toxin gastroenteritis viral other Narrative Course pt given toradol and antiemetics without relief still severe pain , She had received zofran X 2 in EMS and reglan from [place] and then CT indicated due to extreme of pain . Signed out to oncoming attending Diagnosis Primary Impression: Diarrhea in adult patient Additional Impression: Abdominal pain Scripts Ondansetron Odt (Zofran Odt) 4 Mg Tab 4 MG SL Q6HR Y for Nausea/Vomiting, #10 TAB 0 Refills Prov: Fatmiah Hays MD 07/02/17 Duy Antunez MD Jul 02, 2017 05:42
[2017-07-02 08:17] VITALS: PULSE 103; RESP 15; O2SAT 97
[2017-07-02] MEDS ORDERED: IOHEXOL 350 MG/ML 10 ML VIAL (for RAD DIAG) IVCONTRAST ONE (08:41)
--- NOTE | 2017-07-02 09:16 | RADRPT ---
EXAM DATE/TIME: 07/02/2017 08:37 [facility] COMPARISON: CT ABDOMEN & PELVIS W/O CONTRAST, November 01, 2016, 9:01. CT ABDOMEN & PELVIS W CONTRAST, July 01, 2015, 19:14. US PELVIS,COMP,W DOPLR, TRANS VAG, July 02, 2015, 22:09. CT ABDOMEN & PELVIS W CON TRAST, June 04, 2016, 12:26. INDICATIONS : Abdominal pain IV CONTRAST: 96 cc Omnipaque 350 (iohexol) IV ORAL CONTRAST: No oral contrast ingested. RADIATION DOSE: 16.55 CTDIvol (mGy) MEDICAL HISTORY : Diverticulitis. Cardiovascular disease Hypertension. SURGICAL HISTORY : None. ENCOUNTER: Initial ACUITY: 1 day PAIN SCALE: 6/10 LOCATION: Bilateral Abdomen TECHNIQUE: Volumetric scanning of the abdomen and pelvis was performed. Using automated exposure control and ad justment of the mA and/or kV according to patient size, radiation dose was kept as low as reasonably achievable to obtain optimal diagnostic quality images. DICOM format image data is available electro nically for review and comparison. FINDINGS: LOWER LUNGS: The visualized lower lungs are clear. LIVER: Homogeneous density without lesion. There is no dilation of the biliary tree. No calcified gallston es. SPLEEN: Normal size without lesion. PANCREAS: Within normal limits. KIDNEYS: Normal in size and shape. There is no mass, stone or hydronephrosis. ADRENAL GLANDS: Within normal limits. VASCULAR: There is no aortic aneurysm. BOWEL/MESENTERY: No dilated loops of small or large bowel. Scattered small diverticula in left colon and sigmoid colo n without radiographic evidence of diverticulitis. ABDOMINAL WALL: Within normal limits. RETROPERITONEUM: There is no lymphadenopathy. BLADDER: No wall thickening or mass. REPRODUCTIVE: Retroverted uterus. Prior ultrasound and CT have demonstrated a complex cystic lesion in the left ad nexa; today's examination, the appearance and size is stable from prior measuring 4.9 x 3.7 cm. Low density areas in the right adnexa characteristic of multiple ovarian cysts are also present. Retrove rted uterus. Bilateral tubal ligation clips. No evidence of free fluid. INGUINAL: There is no lymphadenopathy or hernia. MUSCULOSKELETAL: Within normal limits for patient age. CONCLUSION: 1. No acute findings. 2. Complex cystic lesion left adnexa and scattered small sigmoid diverticula, stable from October 2016. Shane Angeles MD on July 02, 2017 at 9:08 Board Certified Radiologist. This report was verified electronically.
[2017-07-02] MEDS ORDERED: ZOFR4TAB3 SL (09:38)
--- NOTE | 2017-07-02 09:39 | PD ---
Physical Exam Narrative GENERAL: 46-year-old female in no apparent distress SKIN: Focused skin assessment warm/dry. HEAD: Atraumatic. Normocephalic. EYES: No scleral icterus. No injection or drainage. ENT: No nasal bleeding or discharge. NECK: Trachea midline. No JVD. CARDIOVASCULAR: Regular rate and rhythm. RESPIRATORY: No accessory muscle use. GASTROINTESTINAL: Abdomen soft, mild tenderness diffusely, nondistended. MUSCULOSKELETAL: No obvious deformities. PSYCHIATRIC: Appropriate mood and affect; insight and judgment normal. Data Data Last Documented VS Vital Signs Date Time Temp Pulse Resp B/P (MAP) Pulse Ox O2 Delivery O2 Flow Rate FiO2 07/02/17 08:17 103 15 97 Room Air 07/02/17 03:14 97.5 126/70 (88) Orders Orders Complete Blood Count With Diff (07/02/17 03:38) Comprehensive Metabolic Panel (07/02/17 03:38) Lipase (07/02/17 03:38) Urinalysis - C+S If Indicated (07/02/17 03:38) Famotidine Inj (Pepcid Inj) (07/02/17 03:45) Ketorolac Inj (Toradol Inj) (07/02/17 03:45) Sodium Chlor 0.9% 1000 Ml Inj (Ns 1000 M (07/02/17 03:45) Ed Urine Pregnancytest Poc (07/02/17 04:38) Abdomen, Flat & Upright (07/02/17 ) Metoclopramide Inj (Reglan Inj) (07/02/17 05:15) Morphine Inj (Morphine Inj) (07/02/17 05:15) Ct Abd/Pel W Iv Contrast(Rout) (07/02/17 ) Sodium Chlor 0.9% 1000 Ml Inj (Ns 1000 M (07/02/17 07:00) Oral Contrast - Adult (07/02/17 07:51) Iohexol 350 Inj (Omnipaque 350 Inj) (07/02/17 08:41) Ed Discharge Order (07/02/17 09:31) Labs Laboratory Tests Test 07/02/17 03:35 07/02/17 05:00 White Blood Count 23.1 TH/MM3 Red Blood Count 4.92 MIL/MM3 Hemoglobin 14.4 GM/DL Hematocrit 42.0 % Mean Corpuscular Volume 85.3 FL Mean Corpuscular Hemoglobin 29.2 PG Mean Corpuscular Hemoglobin Concent 34.2 % Red Cell Distribution Width 13.6 % Platelet Count 300 TH/MM3 Mean Platelet Volume 8.7 FL Neutrophils (%) (Auto) 93.5 % Lymphocytes (%) (Auto) 2.1 % Monocytes (%) (Auto) 3.8 % Eosinophils (%) (Auto) 0.3 % Basophils (%) (Auto) 0.3 % Neutrophils # (Auto) 21.6 TH/MM3 Lymphocytes # (Auto) 0.5 TH/MM3 Monocytes # (Auto) 0.9 TH/MM3 Eosinophils # (Auto) 0.1 TH/MM3 Basophils # (Auto) 0.1 TH/MM3 CBC Comment DIFF FINAL Differential Comment Blood Urea Nitrogen 15 MG/DL Creatinine 0.98 MG/DL Random Glucose 187 MG/DL Total Protein 8.9 GM/DL Albumin 4.4 GM/DL Calcium Level 10.0 MG/DL Alkaline Phosphatase 120 U/L Aspartate Amino Transf (AST/SGOT) 19 U/L Alanine Aminotransferase (ALT/SGPT) 20 U/L Total Bilirubin 0.4 MG/DL Sodium Level 138 MEQ/L Potassium Level 3.9 MEQ/L Chloride Level 104 MEQ/L Carbon Dioxide Level 23.3 MEQ/L Anion Gap 11 MEQ/L Estimat Glomerular Filtration Rate 62 ML/MIN Lipase 52 U/L Urine Color YELLOW Urine Turbidity HAZY Urine pH 5.0 Urine Specific [place] 1.023 Urine Protein 30 mg/dL Urine Glucose (UA) NEG mg/dL Urine Ketones TRACE mg/dL Urine Occult Blood NEG Urine Nitrite NEG Urine Bilirubin NEG Urine Urobilinogen LESS THAN 2.0 MG/DL Urine Leukocyte Esterase NEG Urine RBC 3 /hpf Urine WBC 3 /hpf Urine Squamous Epithelial Cells 8 /hpf Urine Bacteria RARE /hpf Urine Hyaline Casts 11 /lpf Urine Granular Casts 42 /lpf Urine Mucus MANY /lpf Microscopic Urinalysis Comment CULT NOT INDICATED MDM Supervised Visit with [facility]: No Interpretation(s) Last 24 hours Impressions Abdomen/Pelvis CT 07/02/17 0000 Signed Impressions: Service Date/Time: Sunday, July 02, 2017 08:37 - CONCLUSION: 1. No acute findings. 2. Complex cystic lesion left adnexa and scattered small sigmoid diverticula, stable from October 2016. Shane Angeles MD Abdomen X-Ray 07/02/17 0000 Signed Impressions: Service Date/Time: Sunday, July 02, 2017 04:52 - CONCLUSION: Benign-appearing abdomen. Aneesh Padgett MD Narrative Course Signed over to me to follow CT and if normal to discharge home Patient updated and given copy of CT for follow-up of her stable ovarian cyst. No further emesis here, patient denies any new complaints and states that they are feeling better. Patient happy with care, all questions answered. Patient knows that follow up is incumbent on them and to return to the emergency room immediately if new or worsening symptoms develop. Patient given strict return precautions, vitals reviewed and are normal, agrees to further workup as an outpatient. Diagnosis Primary Impression: Abdominal pain Qualified Codes: R10.84 - Generalized abdominal pain Additional Impression: Vomiting and diarrhea Patient Instructions: General Instructions Additional Instruction: return as needed, zofran as needed for nausea, tylenol as needed for pain, follow with primary wednesday for recheck Med/Other Pt SpecificInfo: Prescription(s) given Scripts Ondansetron Odt (Zofran Odt) 4 Mg Tab 4 MG SL Q6HR Y for Nausea/Vomiting, #10 TAB 0 Refills Prov: Fatimah Hays MD 07/02/17 Disposition: 01 DISCHARGE HOME Condition: Stable Fatimah Hays MD Jul 02, 2017 09:39
== END 2017-07-02 10:02 | disposition home or self-care (01) ==
LOC: NEPC 02:54
DX: R10.84 Generalized abdominal pain (principal); R11.10 Vomiting, unspecified; R19.7 Diarrhea, unspecified; N83.202 Unspecified ovarian cyst, left side; M06.9 Rheumatoid arthritis, unspecified; F41.9 Anxiety disorder, unspecified; I10 Essential (primary) hypertension; M79.7 Fibromyalgia; M10.9 Gout, unspecified
CPT/HCPCS: 74019; 74177; 80053; 81001; 83690; 84703; 85025; 96361; 96365; 96375; 99285; J1885; J2270; J2765; J7030; Q9967

== ENCOUNTER → 2017-08-16 | Outpatient (CLI) | payer OTHER ==
[~2017-08-16] MED LIST changes: -GABA300C5 PO; -LACT10SO PO; +LYRI100C PO; -TRAM50 PO; +ZOFR4TAB3 SL
[2017-08-16 16:41] LABS: BILIRUBIN, URINE NEG (NEG); BLOOD, URINE NEG (NEG); GLUCOSE,URINE NEG (NEG); KETONE, URINE NEG (NEG); NITRITE,URINE NEG (NEG); PH, URINE 5.5 (5.0-8.5); SQUAMOUS EPITHELIAL CELL URINE 2 /hpf (0-5); URINE COLOR YELLOW (YELLW/STRAW); URINE LEUKOCYTE ESTERASE NEG (NEG)
[2017-08-16 16:51] LABS: AUTOMATED NEUTROPHIL # 4.2 TH/MM3 (1.8-7.7); BASOPHIL % 0.5 % (0.0-2.0); EOSINOPHIL # 0.1 TH/MM3 (0-0.4); EOSINOPHIL % 1.4 % (0.0-4.0); HEMATOCRIT 35.4 % (35.0-46.0); HEMOGLOBIN 12.3 GM/DL (11.6-15.3); LYMPH % 34.6 % (9.0-44.0); LYMPHOCYTE # 2.6 TH/MM3 (1.0-4.8); MEAN CELL VOLUME 85.1 FL (80.0-100.0); MEAN CORPUSCULAR HEMOGLOBIN 29.6 PG (27.0-34.0); MEAN CORPUSCULAR HGB CONC 34.8 % (32.0-36.0); MEAN PLATELET VOLUME 8.2 FL (7.0-11.0); MONO % 7.1 % (0.0-8.0); MONOCYTE # 0.5 TH/MM3 (0-0.9); NEUT % 56.4 % (16.0-70.0); PLATELET COUNT 296 TH/MM3 (150-450); RED BLOOD COUNT 4.16 MIL/MM3 (4.00-5.30); RED CELL DISTRIBUTION WIDTH 13.2 % (11.6-17.2); WHITE BLOOD COUNT 7.4 TH/MM3 (4.0-11.0)
[2017-08-16 17:06] LABS: ALBUMIN 3.8 GM/DL (3.4-5.0); AST (GOT) 16 U/L (15-37); BICARBONATE 28.7 MEQ/L (21.0-32.0); BLOOD UREA NITROGEN 11 MG/DL (7-18); CALCIUM 8.5 MG/DL (8.5-10.1); CHLORIDE 106 MEQ/L (98-107); GLOMERULAR FILTRATION RATE 78 ML/MIN (>89); GLUCOSE,FASTING 107 MG/DL (74-99); SODIUM (NA) 141 MEQ/L (136-145)
[2017-08-16 17:07] LABS: ALT (GPT) 24 U/L (10-53)
[2017-08-16 17:39] LABS: ALKALINE PHOSPHATASE 88 U/L (45-117); TOTAL BILIRUBIN ADULT 0.2 MG/DL (0.2-1.0); TOTAL PROTEIN 7.5 GM/DL (6.4-8.2)
[2017-08-16 17:43] LABS: FOLATE GREATER THAN 20.0 NG/ML (3.1-17.5)
[2017-08-16 17:47] LABS: WESTERGREN SEDIMENTATION RATE 31 mm/hr (0-20)
[2017-08-16 17:49] LABS: C-REACTIVE PROTEIN 0.71 MG/DL (0.00-0.30)
== END ==
LOC: CLAB 15:42
DX: M05.741 Rheumatoid arthritis with rheumatoid factor of right hand without organ or systems involvement (principal); N39.0 Urinary tract infection, site not specified
CPT/HCPCS: 36415; 80053; 81001; 82607; 82746; 85025; 85652; 86140; 87086

== ENCOUNTER 2018-03-08 07:16 | Observation (INO) ==
[2018-03-08] MEDS ORDERED: Chlorhexidine Gluconate 2% 1 Pack (2 Cloths) TOPICAL ONE (08:00)
[2018-03-08] MEDS ORDERED: Metoprolol Tartrate 25 MG Tablet PO ONE (08:00)
[2018-03-08] MEDS ORDERED: Sodium Chlor 0.9% Inj 500 ML IV.CONT ONE (08:00)
[2018-03-08 08:44] LABS: Baso % (Auto) 0.4 % (0.0-2.0); Eos % (Auto) 0.3 % (0.0-4.0); Hematocrit 28.4 % (35.0-46.0); Hemoglobin 9.4 gm/dL (11.6-15.3); Lymph # (Auto) 1.2 th/mm3 (1.0-4.8); Lymph % (Auto) 10.7 % (9.0-44.0); Mean Corpuscular Hemoglobin 26.7 pg (27.0-34.0); Mean Corpuscular Volume 81.1 fL (80.0-100.0); Mean Platelet Volume 9.3 fL (7.0-11.0); Mono # (Auto) 0.9 th/mm3 (0.0-0.9); Neut # (Auto) 8.9 th/mm3 (1.8-7.7); Neut % (Auto) 80.6 % (16.0-70.0); Platelet Count 312 th/mm3 (150-450); Red Cell Distribution Width 14.5 % (11.6-17.2); White Blood Count 11.1 th/mm3 (4.0-11.0)
[2018-03-08] MEDS ORDERED: Morphine Sulfate Inj 2 MG/ML Vial ONE (09:20)
[2018-03-08] MEDS ORDERED: Bupivacaine/Epinephrine Inj 0.25% 50 ML Vial ONE (09:52)
[2018-03-08] MEDS ORDERED: Lidocaine PF 1% Inj 5 ML Syringe OTHER ONE (10:04)
[2018-03-08] MEDS ORDERED: Phenylephrine/NS 1000 MCG/10ML Syringe IV.PUSH ONE (10:04)
[2018-03-08] MEDS ORDERED: Ketorolac Inj 30 MG/ML (IVP) Vial IV.PUSH ONE (10:04)
[2018-03-08] MEDS ORDERED: *Ondansetron Inj 4 MG/2 ML Vial PERIprocedural Use ONLY ONE (12:22)
[2018-03-08] MEDS ORDERED: *Promethazine Inj 25 MG/ML Vial PERIprocedural use ONLY ONE (12:29)
--- NOTE | 2018-03-08 12:30 | P.OP ---
- Preoperative Diagnosis (1) Left ovarian cyst - Postoperative Diagnosis (1) Tubo-ovarian inflammatory disease Procedure: operative laparoscopy and left salpingoophorectomy Anesthesia: GETA Surgeon: Aneesh Hanson MD Fibre Composite Technician: Swapna Cruz Estimated blood loss (mL): 100 Pathology: other (left tube and ovary)
[2018-03-08] MEDS ORDERED: fentaNYL Citrate Inj 100 MCG/2 ML Ampul ONE ×2 (12:39)
[2018-03-08] MEDS ORDERED: ceFAZolin 2 GM Premix Inj 2 GM/50 ML PIGGYBACK IV.SIG SCH (13:00)
--- NOTE | 2018-03-08 13:24 | MP ---
cc: Aneesh Hanson MD DATE OF OPERATION: 03/08/2018 PROCEDURE PERFORMED: Operative laparoscopy with a left salpingo-oophorectomy. PREOPERATIVE DIAGNOSIS: Left ovarian cyst. POSTOPERATIVE DIAGNOSIS: Left tubo-ovarian abscess. SURGEON: Aneesh Hanson MD ESTIMATED BLOOD LOSS: 100 mL. MONITOR AND STORAGE BIN TENDER: DINESH Villar COMPLICATIONS: None. ANESTHESIA: General. PROCEDURE IN DETAIL: After informed consent, the patient was taken to the operating room where she was placed under general anesthesia, placed in supine position with legs in the Yellofins stirrups. The abdomen, perineum and vagina were prepped and draped in normal sterile fashion. After adequate anesthesia was assured and a timeout was taken, a speculum was placed in the vagina. The cervix grasped with a single-tooth tenaculum. Cervix was then used to hold an acorn uterine manipulator. All gloves were changed. A 5 mm infraumbilical incision was then made after injecting 0.25% Marcaine with epinephrine. We entered the abdomen under direct visualization and insufflated the abdomen with CO2. A suprapubic 10 mm trocar and left and right lower quadrant 5 mm trocars were placed. The upper abdomen was normal. Lower abdomen had a normal uterus and right fallopian tube, but the left fallopian tube was completely adherent, covered with an exudative material, swollen and hyperemic. A diagnosis of abscess was made. With manipulating the ovary, which was stuck to the uterus and the posterior cul-de-sac, it started to drain pus and old hemorrhagic fluid, possible endometrioma. A suction dairy farmworker was used to evacuate that ovary and the abscess cavity. The fallopian tube was also very indurated. Using a Harmonic scalpel, we came across the infundibulopelvic ligament and then dissected the ovary off the pelvic sidewall, carefully dissecting the ovary and the fallopian tube off the pelvic sidewall all the way down to the round ligament where the round ligament was inflamed, swollen and indurated. We did not remove the round ligament. We just dissected the fallopian tube off of that with care. There was some oozing controlled with bipolar cautery. The Harmonic scalpel was used for most of the dissection. We then had taken the infundibulopelvic ligament and then we took the blood supply of the uteroovarian ligament into the ovary. This was taken with the Harmonic scalpel. Good hemostasis was achieved. At this point, we continued to dissect the fallopian tube off the cul-de-sac. Once we freed it completely and we removed it from the uterus and the pelvic sidewall, it was placed in cul-de-sac. The pelvis was irrigated well. The right ovary was normal. The uterus was normal. Good hemostasis had been achieved. The ovary and fallopian tube were placed in a bag and pulled through the 10 mm midline suprapubic incision. Once that was removed, we irrigated the pelvis well and freed it from all infection and debris and there was no remaining infection. The bleeding was controlled. Because of this infection, the patient will be given IV antibiotics for 24 hours and she will be admitted for 23-hour observation. At this point, all instruments were removed. The fascia was closed at the suprapubic region with 2-0 Vicryl and the skin was closed with Monocryl. The patient tolerated the procedure well. She was taken to the recovery room in stable condition. Lap and instrument counts were reported as correct. MD YOLA Lopez/bob , 12:34 PM , 12:44 PM
[2018-03-08] MEDS: LORazepam 0.5 MG Tablet PO SCH ×2 (13:36→18:37)
[2018-03-08 15:38] LABS: Hematocrit 27.5 % (35.0-46.0); Hemoglobin 9.6 gm/dL (11.6-15.3); Mean Corpuscular HGB Conc 34.8 % (32.0-36.0); Mean Corpuscular Hemoglobin 28.1 pg (27.0-34.0); Mean Corpuscular Volume 80.8 fL (80.0-100.0); Platelet Count 289 th/mm3 (150-450); Red Cell Distribution Width 14.5 % (11.6-17.2); White Blood Count 12.5 th/mm3 (4.0-11.0)
[2018-03-08] MEDS: Ibuprofen 400 MG Tablet PO PRN (21:32)
[2018-03-08] MEDS: traZODone 100 MG Tablet PO SCH (21:32)
[2018-03-08] MEDS: Pregabalin 75 MG Capsule PO SCH (21:34)
[2018-03-08] MEDS: Ampicillin/Sulbactam Inj 3 GM in Sodium Chloride 0.9% Inj 100 ML IV.SIG SCH (22:27)
[2018-03-09] MEDS: Ibuprofen 400 MG Tablet PO PRN ×4 (02:00→19:40)
[2018-03-09] MEDS: Ampicillin/Sulbactam Inj 3 GM in Sodium Chloride 0.9% Inj 100 ML IV.SIG SCH ×4 (04:13→22:07)
[2018-03-09 05:55] LABS: Baso % (Auto) 0.3 % (0.0-2.0); Eos % (Auto) 0.1 % (0.0-4.0); Hematocrit 24.4 % (35.0-46.0); Lymph # (Auto) 1.1 th/mm3 (1.0-4.8); Lymph % (Auto) 12.7 % (9.0-44.0); Mean Corpuscular HGB Conc 32.8 % (32.0-36.0); Mean Corpuscular Hemoglobin 27.1 pg (27.0-34.0); Mean Corpuscular Volume 82.7 fL (80.0-100.0); Mean Platelet Volume 9.1 fL (7.0-11.0); Mono # (Auto) 0.4 th/mm3 (0.0-0.9); Mono % (Auto) 5.1 % (0.0-8.0); Neut % (Auto) 81.8 % (16.0-70.0); Platelet Count 270 th/mm3 (150-450); Red Blood Count 2.96 mil/mm3 (4.00-5.30); Red Cell Distribution Width 14.7 % (11.6-17.2); White Blood Count 8.6 th/mm3 (4.0-11.0)
--- NOTE | 2018-03-09 08:33 | P.PNOB ---
Subjective Post op day: 1 Interval history: 47 yo patient had LSO for TOA. She is on antibiotics. she had one fever to 102 yesterday at 8 pm. She is now on unasyn. she complains of pain and does not want to get out of bed. she ambulates to bathroom without assistance or lightheadedness. She knows she needs to ambulate today Objective Vital Signs/I&O: Vital Signs 03/08/18 12:10 03/08/18 12:15 03/08/18 12:30 Temperature 98.1 F Pulse Rate 86 84 81 Respiratory Rate 17 18 20 Blood Pressure 117/65 118/66 125/69 Pulse Oximetry 92 L 94 L 95 03/08/18 12:45 03/08/18 13:00 03/08/18 13:15 Temperature Pulse Rate 81 81 81 Respiratory Rate 22 19 19 Blood Pressure 130/79 128/80 129/78 Pulse Oximetry 95 96 95 03/08/18 13:30 03/08/18 14:47 03/08/18 20:00 Temperature 97.4 F L 98.0 F 101.1 F H Pulse Rate 80 77 80 Respiratory Rate 19 20 18 Blood Pressure 128/77 121/74 106/60 Pulse Oximetry 96 95 92 L 03/08/18 20:50 03/08/18 22:40 03/08/18 23:52 Temperature 102.3 F H 100.4 F H 99.2 F Pulse Rate 82 Respiratory Rate 16 Blood Pressure 89/43 L Pulse Oximetry 92 L 03/09/18 01:46 03/09/18 01:50 03/09/18 01:55 Temperature 98.0 F Pulse Rate 79 Respiratory Rate Blood Pressure 89/56 L 129/71 Pulse Oximetry 96 03/09/18 04:00 03/09/18 06:25 03/09/18 07:54 Temperature 98.5 F Pulse Rate 62 80 Respiratory Rate 16 Blood Pressure 88/52 L 103/60 107/67 Pulse Oximetry 92 L Intake & Output 03/08/18 03/09/18 03/09/18 18:59 06:59 18:59 Intake Total 1200 / 1200 100 / 100 Output Total 600 / 600 Balance 600 / 600 100 / 100 Weight 101.2 kg Intake: IV 1000 / 1000 100 / 100 LR 1000 mL Inj 1,000 ML @ 30 1000 / 1000 mls/hr IV.CONT .Q24H [facility] Rx#: [id number] Unasyn Inj 3 GM In NS Inj 100 100 / 100 ML @ 200 mls/hr IV.SIG Q6H [facility] Rx#:[id number] Anesthesia Amount 200 / 200 Output: Urine 400 / 400 Estimated Blood Loss 100 / 100 Urine Amount (Catheter) 100 / 100 Straight 100 / 100 Other: # Voids 1 Weight On Admission 101.2 kg Result Diagrams: 03/09/18 05:21 Objective Remarks: GENERAL: Well-nourished, well-developed patient. ABDOMEN/GI: Abdomen soft, non-tender, bowel sounds present. incisions clean and dry Incision: Clean, dry and intact. Fundus: Firm, non-tender at umbilicus. GENITOURINARY: Light to moderate bleeding. EXTREMITIES: No cyanosis or edema, non-tender, without signs of DVT. Medications and IVs: Active Medications Duloxetine HCl (Cymbalta) 90 mg PO DAILY [facility] Hydrochlorothiazide (Microzide) 12.5 mg PO DAILY [facility] Ampicillin Sodium/Sulbactam (Sodium 3 gm/ Sodium Chloride) 100 mls @ 200 mls/ hr IV.SIG Q6H [facility] Last Admin: 03/09/18 04:13 Dose: 200 mls/hr Ibuprofen (Motrin) 400 mg PO Q4HR PRN PRN Reason: FEVER > 101 F Last Admin: 03/09/18 07:41 Dose: 400 mg Leflunomide (Arava) 20 mg PO DAILY [facility] Lisinopril (Prinivil) 20 mg PO DAILY [facility] Lorazepam (Ativan) 0.5 mg PO TID [facility] Last Admin: 03/08/18 18:37 Dose: 0.5 mg Miscellaneous Information (Misc Nursing Information) 0 each OTHER UNSCH PRN PRN Reason: SEE LABEL COMMENTS Stop: 03/09/18 12:08 Oxycodone/Acetaminophen (Percocet 5/325 Mg) 1 tab PO Q4H PRN PRN Reason: PAIN SCALE 1 TO 5 Last Admin: 03/09/18 08:13 Dose: 1 tab Oxycodone/Acetaminophen (Percocet 5/325 Mg) 2 tab PO Q4H PRN PRN Reason: PAIN SCALE 6 TO 10 Last Admin: 03/08/18 21:33 Dose: 2 tab Patient Own Medication (Patient Own Medication) 0 each PO DAILY [facility] Pregabalin (Lyrica) 150 mg PO HS [facility] Last Admin: 03/08/18 21:34 Dose: 150 mg Sodium Chloride (Ns Flush) 2 ml IV.FLUSH BID [facility] Last Admin: 03/08/18 22:27 Dose: 2 ml Sodium Chloride (Ns Flush) 2 ml IV.FLUSH PRN PRN PRN Reason: FLUSH AFTER USING IV ACCESS Last Admin: 03/09/18 04:13 Dose: 2 ml Trazodone HCl (Desyrel) 100 mg PO HS [facility] Last Admin: 03/08/18 21:32 Dose: 100 mg Assessment and Plan - Diagnosis (1) Tubo-ovarian inflammatory disease Code(s): N70.93 - Salpingitis and oophoritis, unspecified Status: Acute
[2018-03-09] MEDS: LORazepam 0.5 MG Tablet PO SCH ×3 (09:44→17:54)
[2018-03-09] MEDS: Lisinopril 20 MG Tablet PO SCH (09:44)
--- NOTE | 2018-03-09 15:00 | ECG ---
Date Performed: 03/08/2018 Time Performed: 14:46:03 PTAGE: 47 years EKG: Sinus rhythm LOW QRS VOLTAGE IN PRECORDIAL LEADS POSSIBLE ANTERIOR MYOCARDIAL INFARCTION , OF INDETERMINATE AGE A BNORMAL ECG PREVIOUS TRACING : 07/01/2015 21.53 DOCTOR: Antwan Spears Interpretating Date/Time 03/09/2018 14:58:01
[2018-03-09] MEDS: traZODone 100 MG Tablet PO SCH (22:06)
[2018-03-09] MEDS: Pregabalin 75 MG Capsule PO SCH (22:06)
[2018-03-10] MEDS: Ibuprofen 400 MG Tablet PO PRN ×2 (02:33→08:37)
[2018-03-10] MEDS: Ampicillin/Sulbactam Inj 3 GM in Sodium Chloride 0.9% Inj 100 ML IV.SIG SCH (04:10)
[2018-03-10] MEDS: Lisinopril 20 MG Tablet PO SCH (08:37)
[2018-03-10] MEDS: LORazepam 0.5 MG Tablet PO SCH (08:37)
--- NOTE | 2018-03-10 08:51 | P.PNOB ---
Subjective Post op day: 2 Interval history: patient had Left salpingoophorectomy and had TOA. she had fever to 102 pod#0 she is having pain but is 24 hours afebrile and is ready for DC home Objective Vital Signs/I&O: Vital Signs 03/09/18 12:10 03/09/18 15:06 03/09/18 20:44 Temperature 98.8 F 98.7 F 98.4 F Pulse Rate 82 86 78 Respiratory Rate 20 18 18 Blood Pressure 126/75 125/82 99/56 L Pulse Oximetry 96 03/09/18 22:07 03/09/18 22:09 03/09/18 22:10 Temperature Pulse Rate Respiratory Rate 18 18 18 Blood Pressure Pulse Oximetry 03/10/18 00:06 03/10/18 04:40 03/10/18 04:54 Temperature 98.0 F 98.8 F Pulse Rate 77 89 Respiratory Rate 18 16 18 Blood Pressure 119/74 122/87 Pulse Oximetry 96 93 L Intake & Output 03/09/18 03/10/18 03/10/18 18:59 06:59 18:59 Intake Total 100 / 100 200 / 200 Balance 100 / 100 200 / 200 Intake: IV 100 / 100 200 / 200 Unasyn Inj 3 GM In NS Inj 100 100 / 100 200 / 200 ML @ 200 mls/hr IV.SIG Q6H [facility] Rx#:[id number] Result Diagrams: 03/09/18 05:21 Objective Remarks: GENERAL: Well-nourished, well-developed patient. . ABDOMEN/GI: Abdomen soft, non-tender, bowel sounds present. Incision: Clean, dry and intact. Fundus: Firm, non-tender at umbilicus. GENITOURINARY: Light to moderate bleeding. EXTREMITIES: No cyanosis or edema, non-tender, without signs of DVT. Medications and IVs: Active Medications Duloxetine HCl (Cymbalta) 90 mg PO DAILY [facility] Last Admin: 03/10/18 08:37 Dose: 90 mg Hydrochlorothiazide (Microzide) 12.5 mg PO DAILY [facility] Last Admin: 03/10/18 08:37 Dose: 12.5 mg Ampicillin Sodium/Sulbactam (Sodium 3 gm/ Sodium Chloride) 100 mls @ 200 mls/ hr IV.SIG Q6H [facility] Last Admin: 03/10/18 04:10 Dose: 200 mls/hr Lactated Ringer's (Lr 1000 Ml Inj) 1,000 mls @ 125 mls/hr IV.SIG .Q8H [facility] Last Infusion: 03/10/18 02:32 Dose: 0 mls/hr Ibuprofen (Motrin) 400 mg PO Q4HR PRN PRN Reason: FEVER > 101 F Last Admin: 03/10/18 08:37 Dose: 400 mg Leflunomide (Arava) 20 mg PO DAILY [facility] Last Admin: 03/10/18 08:37 Dose: 20 mg Lisinopril (Prinivil) 20 mg PO DAILY [facility] Last Admin: 03/10/18 08:37 Dose: 20 mg Lorazepam (Ativan) 0.5 mg PO TID [facility] Last Admin: 03/10/18 08:37 Dose: 0.5 mg Oxycodone/Acetaminophen (Percocet 5/325 Mg) 1 tab PO Q4H PRN PRN Reason: PAIN SCALE 1 TO 5 Last Admin: 03/09/18 19:40 Dose: 1 tab Oxycodone/Acetaminophen (Percocet 5/325 Mg) 2 tab PO Q4H PRN PRN Reason: PAIN SCALE 6 TO 10 Last Admin: 03/10/18 08:36 Dose: 2 tab Patient Own Medication (Patient Own Medication) 0 each PO DAILY [facility] Last Admin: 03/09/18 22:09 Dose: Not Given Pregabalin (Lyrica) 150 mg PO HS [facility] Last Admin: 03/09/18 22:06 Dose: 150 mg Sodium Chloride (Ns Flush) 2 ml IV.FLUSH BID [facility] Last Admin: 03/09/18 22:10 Dose: 2 ml Sodium Chloride (Ns Flush) 2 ml IV.FLUSH PRN PRN PRN Reason: FLUSH AFTER USING IV ACCESS Last Admin: 03/09/18 04:13 Dose: 2 ml Trazodone HCl (Desyrel) 100 mg PO [facility] Last Admin: 03/09/18 22:06 Dose: 100 mg Assessment and Plan - Diagnosis (1) Tubo-ovarian inflammatory disease Code(s): N70.93 - Salpingitis and oophoritis, unspecified Status: Acute - Plan Discharge Planning: sc home
--- NOTE | 2018-03-10 09:02 | P.DS ---
Date of admission: 03/08/18 12:20 Primary care physician: Dillon Muniz MD Brief History from admission: admit for left ovarian cyst. TOA was diagnosed ans treated with surgery, Patient had fever and dc home 24 hour afeb DS: Diagnosis - Discharge Diagnosis (1) Tubo-ovarian inflammatory disease Status: Acute DS: Medications - Discharge Medications Prescriptions: oxycodone-acetaminophen 2 tab PO Q4H PRN 3 Days #24 tab PRN Reason: Pain Scale 6 To 10 DS: Summary Hospital Course: Patient admitted after surgery and had fever day of surgery. Doing well now normal post op pain - Time Spent with Patient Total time spent providing and/or coordinating discharge services: Less than 30 minutes - Quality: VTE Deep Vein Thrombosis/Pulmonary Embolism Present on Admission: No Exam Vital signs: Vital Signs 03/09/18 12:10 03/09/18 15:06 03/09/18 20:44 Temperature 98.8 F 98.7 F 98.4 F Pulse Rate 82 86 78 Respiratory Rate 20 18 18 Blood Pressure 126/75 125/82 99/56 L Pulse Oximetry 96 03/09/18 22:07 03/09/18 22:09 03/09/18 22:10 Temperature Pulse Rate Respiratory Rate 18 18 18 Blood Pressure Pulse Oximetry 03/10/18 00:06 03/10/18 04:40 03/10/18 04:54 Temperature 98.0 F 98.8 F Pulse Rate 77 89 Respiratory Rate 18 16 18 Blood Pressure 119/74 122/87 Pulse Oximetry 96 93 L Intake & Output 03/09/18 03/10/18 03/10/18 18:59 06:59 18:59 Intake Total 100 / 100 200 / 200 Balance 100 / 100 200 / 200 Intake: IV 100 / 100 200 / 200 Unasyn Inj 3 GM In NS Inj 100 100 / 100 200 / 200 ML @ 200 mls/hr IV.SIG Q6H [facility] Rx#:[id number] - Constitutional no acute distress Results Procedures completed during hospitalization: Operative LSC LSO Completed studies during hospitalization: Pending at discharge 03/08/18 12:48 Surgical [PTH] Routine Labs on day of discharge: Preliminary micro results at discharge 03/08/18 23:04 Aerobic Blood Culture - Preliminary Blood - Peripheral No growth in 1 day Anaerobic Blood Culture - Preliminary No growth in 1 day Discharge Plan - Discharge Disposition Patient Disposition: Discharge Home - Discharge Condition Condition: Good - Discharge Order Discharge Orders: Discharge Order (Routine); Ordered 03/10/18 Ordered By: Aneesh Hanson - Physicians Team Primary Care Provider: Dillon Muniz Attending Provider: Aneesh Hanson - Rxs /Orders / Referrals /Forms Prescriptions: New amoxicillin-pot clavulanate [Augmentin] 875-125 mg Tablet 1 tab PO BID 5 Days Qty: 10 RF: 0 oxycodone-acetaminophen 5-325 mg Tablet 2 tab PO Q4H PRN (Reason: Pain Scale 6 To 10) 3 Days Qty: 24 RF: 0 Continue carbamazepine 200 mg Tablet 200 mg PO BID cholecalciferol (vitamin D3) [Vitamin D3] 2,000 unit Capsule 2,000 unit PO DAILY cyanocobalamin (vitamin B-12) 2,500 mcg Tablet, Sublingual 2,500 mcg SUBLINGUAL DAILY duloxetine 30 mg Capsule,Delayed Release(Dr/Ec) 90 mg PO DAILY ibuprofen 600 mg tablet 600 mg PO Q6-8H PRN (Reason: pain) Qty: 20 RF: 0 leflunomide 20 mg Tablet 20 mg PO DAILY lisinopril-hydrochlorothiazide 20-12.5 mg Tablet 1 tab PO DAILY lorazepam 0.5 mg Tablet 1 tab PO TID metoclopramide HCl 5 mg Tablet 5 mg PO QID pregabalin [Lyrica] 150 mg Capsule 150 mg PO HS probenecid 500 mg Tablet 500 mg PO DAILY prochlorperazine maleate 10 mg tablet 10 mg PO Q6H PRN (Reason: nausea and vomiting) Qty: 20 RF: 0 tofacitinib [Xeljanz XR] 11 mg Tablet Extended Release 24 Hr 11 mg PO DAILY trazodone 100 mg Tablet 100 mg PO HS zolpidem 12.5 mg Tablet,Ext Release Multiphase 1 tab PO HS Discontinued acetaminophen-codeine 300-15 mg Tablet 1 tab PO Q6H PRN (Reason: Migraine Headache) [id number]-[id number] 50-325-40 mg Tablet 1 - 2 tab PO Q6H PRN (Reason: Migraine Headache) Referrals: Dillon Muniz MD [Primary Care Provider] - See Instructions Aneesh Hanson MD [Physician] - See Instructions (2 weeks) - Post Discharge Care Plan Care Plan Goals: Your Health Problems: Goals to Promote Your Health: * To prevent worsening of your condition * To maintain your health at the optimal level Directions to Meet Your Goals: * Take your medications as prescribed * Follow your dietary instruction * Follow activity as directed * Keep your appointments as scheduled * Take your immunizations and boosters as scheduled * If your symptoms worsen call your PCP * If no PCP go to Urgent Care or Emergency Room Smoking is dangerous to your health. Avoid second hand smoke. You may reach the 24-hour crisis hotline for domestic abuse at .
== END 2018-03-10 10:45 | disposition home or self-care (01) ==
LOC: HSDI 07:16 → HSDC 07:16 → H1EA 13:55
PROVIDERS: ADMIT Obstetrics & Gynecology; ATTEND Obstetrics & Gynecology
PROC: LAPSCPY (ICD-10-PCS; 2018-03-08 10:04)